=== PATIENT | female | born 1985 | race Caucasian/White ===

== ENCOUNTER → 2016-11-27 | Outpatient (CLI) | payer OTHER ==
[2015-08-15 13:30] VITALS: BP 122/83
[~2016-11-27] MED LIST: HYDR-971 PO; IOHEXOL 180 MG/ML 10 ML VIAL. INT UTERIN ONE; NAPR500T PO; NORE-81 PO; PNV1TABL12 PO
--- NOTE | 2016-11-27 09:38 | KCIC ---
PROCEDURE Hysterosalpingogram HISTORY Post Essure COMPARISON December 06, 2015 TECHNIQUE Patient has a negative test from 11/13/2016. Patient was informed of the risks to include pain, infection, bleeding, allergic reaction. All questions were answered. Patient signed a written consent form for a hysterosalpingogram. Patient was placed in a supine position on the fluoroscopy table. External skin site was cleansed with Betadine solution. Speculum was inserted. External cervical os was cleansed with Betadine solution. Five Malay HSG catheter was inserted and secured with balloon inflation. Fluoroscopic images were acquired during injection of 6 cc Omnipaque 180 contrast. Balloon was deflated and catheter removed. Speculum was removed. There were no immediate complications. FINDINGS There are again bilateral Essure devices present. The bilateral fallopian tubes are now occluded, no contrast opacification beyond the Essure devices. Uterine contour is within normal limits. Fluoroscopy time 27 seconds, 9 images IMPRESSION 1. Bilateral fallopian tubes are now occlued, bilateral Essure devices present. Electronically signed by: Miles Cowart MD (Nov 27, 2016 09:37:08)
== END | disposition home or self-care (01) ==
LOC: KCIC 07:49
PROVIDERS: ATTEND Nurse Practitioner Women's Health
DX: M47.896 Other spondylosis, lumbar region (principal); M43.16 Spondylolisthesis, lumbar region
CPT/HCPCS: 74400

== ENCOUNTER 2017-02-22 23:08 | Emergency (ER) | payer OTHER ==
[~2017-02-22] VITALS: Ht 152.4 cm; Wt 65.8 kg
[~2017-02-22 23:08] MED LIST changes: -IOHEXOL 180 MG/ML 10 ML VIAL. INT UTERIN ONE
[2017-02-22 23:45] LABS: BASO # 0.1 x10^3/uL (0.0-0.2); BASO % 0 % (0-3); EOS % 2 % (0-3); HEMATOCRIT 39.6 % (36.0-47.0); HEMOGLOBIN 13.2 g/dL (12.0-15.5); LYMPH # 2.1 x10^3/uL (1.0-4.8); LYMPH % 12 % (24-48); MEAN CORPUSCULAR HEMOGLOBIN 29 pg (25-35); MEAN CORPUSCULAR HGB CONC 33 g/dL (31-37); MEAN CORPUSCULAR VOLUME 87 fL (79-100); MONO % 5 % (0-9); NEUT % 81 % (31-73); PLATELET COUNT 326 x10^3/uL (140-400); RED BLOOD COUNT 4.54 x10^6/uL (3.50-5.40); RED CELL DISTRIBUTION WIDTH 13.1 % (11.5-14.5); WHITE BLOOD COUNT 17.3 x10^3/uL (4.0-11.0)
[2017-02-22 23:58] LABS: CALCIUM 8.8 mg/dL (8.5-10.1); CREATININE 0.8 mg/dL (0.6-1.0); GFR 83.1; POTASSIUM 3.5 mmol/L (3.5-5.1)
[2017-02-23 00:04] LABS: ALBUMIN 3.8 g/dL (3.4-5.0); ALBUMIN/GLOBULIN RATIO 1.1 (1.0-1.7); TOTAL BILIRUBIN 0.5 mg/dL (0.2-1.0); TOTAL PROTEIN 7.4 g/dL (6.4-8.2)
[2017-02-23 00:05] LABS: % EOS 1 % (0-5); PLT ESTIMATE ADEQUATE (ADEQUATE)
[2017-02-23] MEDS ORDERED: IBUP-1007 PO (01:22)
--- NOTE | 2017-02-23 01:22 | PHYS DOC ---
Past Medical History Past Medical History: No Pertinent History Past Surgical History: No Surgical History Alcohol Use: None Drug Use: None Adult General Chief Complaint Chief Complaint: CHEST PAIN HPI HPI Patient is a 31 year old female who presents to the ER today complaining of sharp pleuritic midsternal/xiphoid chest pain that started approximately 9 PM. Patient denies any other symptomatology at this time. Patient has any fevers shakes chills nausea vomiting diarrhea or shortness of breath. Patient denies any recent cough. Patient denies any lower extremity edema. Patient denies any history of PE or DVT in the past. Patient reports the pain increases with deep inspiration. Patient has no past medical history is. Patient has any hypertension diabetes liver longer kidney problems. Patient denies any prior abdominal surgeries. Patient does not smoke drink or do any drugs. Patient is not allergic to any medications. Patient denies the pain increases with exertion. Patient reports pain increases with cough or deep inspiration. Patient denies any change with position. Patient's physical exam was unremarkable except for reproducible tenderness to palpation over her mid xiphoid region. Patient does have first-degree franco consistent with a sunburn all over her body the bathing suit distribution. Patient's heart was regular rate and rhythm without any murmurs gallops or rubs. Patient's lungs were clear without any wheezing rales or rhonchi. Patient' s abdomen was soft nontender no rebound or guarding. There is normal active bowel sounds. Patient's extremities revealed no clubbing cyanosis or edema. There was no Homans sign. Patient's ER workup has been unremarkable. Patient's EKG revealed normal sinus bradycardia with at a heart rate of [address]-T wave abnormalities. There was no evidence of STEMI. There was no evidence of PE on the EKG. Since chest x-ray revealed normal heart size with no infiltrates or effusions as interpreted by Dr. Lay. Patient's labs are all within normal limits. Patient did have an elevated WBC count which is nonspecific without any source identified on exam or by history. Patient does not appear to have any infection. I do not have a clear correlation for this however have discussed this with the patient that she will need to follow-up with her primary care doctor to have a repeat white count performed. Patient was instructed to return to the ER she's developed any fevers or any other concerning symptoms that we can reevaluate her here in the ER for her elevated WBC count, however at this time I do not feel that the patient will require any further inpatient her emergency room evaluation for this discomfort/elevated WBC count. Since d-dimer was within normal limits. Patient's troponin was unremarkable. Assessment and plan: This is a 31-year-old female who presents here today with nonspecific chest pain that appears to be mechanical in nature. Patient be discharged home with ibuprofen and is to follow-up with her primary care physician as an outpatient. Review of Systems Review of Systems Constitutional: Denies fever or chills [] Eyes: Denies change in visual acuity, redness, or eye pain [] All other review systems are negative except as documented in the history of present illness portion. Allergies Allergies Allergies Coded Allergies Type Severity Reaction Last Updated Verified No Known Drug Allergies 08/15/15 No Physical Exam Physical Exam Constitutional: Well developed, well nourished, no acute distress, non-toxic appearance. [] HENT: Normocephalic, atraumatic, bilateral external ears normal, oropharynx moist, no oral exudates, nose normal. [] Eyes: PERRLA, EOMI, conjunctiva normal, no discharge. [] Neck: Normal range of motion, no tenderness, supple, no stridor. [] Cardiovascular:Heart rate regular rhythm, reproducible tenderness to palpation to her xiphoid. Lungs & Thorax: Bilateral breath sounds clear to auscultation [] Abdomen: Bowel sounds normal, soft, no tenderness, no masses, no pulsatile masses. [] Skin: Warm, dry, no erythema, no rash. [] Back: No tenderness, no CVA tenderness. [] Extremities: No tenderness, no cyanosis, no clubbing, ROM intact, no edema. [] Neurologic: Alert and oriented X 3, normal motor function, normal sensory function, no focal deficits noted. [] Psychologic: Affect normal, judgement normal, mood normal. [] Current Patient Data Vital Signs Vital Signs Date Time Temp Pulse Resp B/P (MAP) Pulse Ox O2 Delivery O2 Flow Rate FiO2 02/22/17 23:28 97.9 67 16 128/69 (88) 97 Room Air 97.9 Lab Values Laboratory Tests Test 02/22/17 23:17 02/22/17 23:34 POC Urine HCG, Qualitative Hcg negative (Negative) White Blood Count 17.3 x10^3/uL (4.0-11.0) H Red Blood Count 4.54 x10^6/uL (3.50-5.40) Hemoglobin 13.2 g/dL (12.0-15.5) Hematocrit 39.6 % (36.0-47.0) Mean Corpuscular Volume 87 fL (79-100) Mean Corpuscular Hemoglobin 29 pg (25-35) Mean Corpuscular Hemoglobin Concent 33 g/dL (31-37) Red Cell Distribution Width 13.1 % (11.5-14.5) Platelet Count 326 x10^3/uL (140-400) Neutrophils (%) (Auto) 81 % (31-73) H Lymphocytes (%) (Auto) 12 % (24-48) L Monocytes (%) (Auto) 5 % (0-9) Eosinophils (%) (Auto) 2 % (0-3) Basophils (%) (Auto) 0 % (0-3) Neutrophils # (Auto) 14.0 x10^3uL (1.8-7.7) H Lymphocytes # (Auto) 2.1 x10^3/uL (1.0-4.8) Monocytes # (Auto) 0.8 x10^3/uL (0.0-1.1) Eosinophils # (Auto) 0.3 x10^3/uL (0.0-0.7) Basophils # (Auto) 0.1 x10^3/uL (0.0-0.2) Segmented Neutrophils % 77 % (35-66) H Lymphocytes % 19 % (24-48) L Monocytes % 3 % (0-10) Eosinophils % 1 % (0-5) Platelet Estimate Adequate (ADEQUATE) D-Dimer (Cait) 0.34 ug/mlFEU (0.00-0.50) Sodium Level 139 mmol/L (136-145) Potassium Level 3.5 mmol/L (3.5-5.1) Chloride Level 102 mmol/L (98-107) Carbon Dioxide Level 28 mmol/L (21-32) Anion Gap 9 (6-14) Blood Urea Nitrogen 13 mg/dL (7-20) Creatinine 0.8 mg/dL (0.6-1.0) Estimated GFR (Cockcroft-Gault) 83.1 BUN/Creatinine Ratio 16 (6-20) Glucose Level 131 mg/dL (70-99) H Calcium Level 8.8 mg/dL (8.5-10.1) Total Bilirubin 0.5 mg/dL (0.2-1.0) Aspartate Amino Transferase (AST) 16 U/L (15-37) Alanine Aminotransferase (ALT) 22 U/L (14-59) Alkaline Phosphatase 113 U/L (46-116) Total Protein 7.4 g/dL (6.4-8.2) Albumin 3.8 g/dL (3.4-5.0) Albumin/Globulin Ratio 1.1 (1.0-1.7) Laboratory Tests 02/22/17 23:34 Laboratory Tests 02/22/17 23:34 EKG EKG [] Radiology/Procedures Radiology/Procedures [] Course & Med Decision Making Course & Med Decision Making Pertinent Labs and Imaging studies reviewed. (See chart for details) [] Dragon Disclaimer Dragon Disclaimer This electronic medical record was generated, in whole or in part, using a voice recognition dictation system. Departure Departure Impression: Primary Impression: Nonspecific chest pain Additional Impression: Leukocytosis Disposition: HOME, SELF-CARE Condition: IMPROVED Referrals: ARYAN KELLER MD (PCP) Patient Instructions: Chest Pain (Nonspecific), Leukocytosis Additional Instructions: Please follow up with your family doctor to further evaluate her chest pain. Your white blood cell count was also elevated in the emergency department. This is a very nonspecific finding. We did however recommend that he follow-up with your family doctor to have that repeated. Scripts Ibuprofen (IBUPROFEN) 600 Mg Tablet 600 MG PO PRN Q6HRS Y for PAIN, #20 TAB Prov: GALA MARINELLI MD 02/23/17 Problem Qualifiers Additional Impression: Leukocytosis Leukocytosis type: unspecified Qualified Codes: D72.829 - Elevated white blood cell count, unspecified GALA MARINELLI MD Feb 23, 2017 01:22
[2017-02-23 01:30] VITALS: BP 116/73
--- NOTE | 2017-02-23 07:35 | RAD ---
EXAM: Chest 2 views. HISTORY: Chest pain. COMPARISON: None. FINDINGS: Frontal and lateral views of the chest are obtained. The central pulmonary vasculature are mildly prominent. There is no pneumothorax or pleural effusion. The heart is not enlarged. IMPRESSION: 1. Correlate for volume overload or mild atypical pneumonic process.
--- NOTE | 2017-02-24 09:17 | EKG ---
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
== END 2017-02-23 01:53 | disposition home or self-care (01) ==
LOC: ER 23:08
DX: R07.89 Other chest pain (principal); D72.829 Elevated white blood cell count, unspecified; L55.0 Sunburn of first degree; R00.1 Bradycardia, unspecified
CPT/HCPCS: 36415; 71020; 80053; 81025; 85007; 85027; 85379; 93005; 99285-25

== ENCOUNTER 2017-02-26 02:50 | Emergency (ER) | payer OTHER ==
[~2017-02-26] VITALS: Ht 152.4 cm; Wt 65.8 kg
[~2017-02-26 02:50] MED LIST changes: +IBUP-1007 PO
[2017-02-26 03:44] LABS: BASO # 0.1 x10^3/uL (0.0-0.2); BASO % 0 % (0-3); EOS % 3 % (0-3); HEMATOCRIT 40.4 % (36.0-47.0); HEMOGLOBIN 13.5 g/dL (12.0-15.5); LYMPH # 2.7 x10^3/uL (1.0-4.8); LYMPH % 20 % (24-48); MEAN CORPUSCULAR HEMOGLOBIN 29 pg (25-35); MEAN CORPUSCULAR HGB CONC 33 g/dL (31-37); MEAN CORPUSCULAR VOLUME 88 fL (79-100); MONO % 7 % (0-9); NEUT % 70 % (31-73); PLATELET COUNT 337 x10^3/uL (140-400); RED BLOOD COUNT 4.62 x10^6/uL (3.50-5.40); RED CELL DISTRIBUTION WIDTH 13.5 % (11.5-14.5); WHITE BLOOD COUNT 13.5 x10^3/uL (4.0-11.0)
[2017-02-26] MEDS ORDERED: KETOROLAC 15 MG/ML VIAL. IV ONE (03:45)
[2017-02-26] MEDS ORDERED: ONDANSETRON PF 4 MG/2 ML VIAL. IV ONE (03:45)
[2017-02-26] MEDS ORDERED: HYDROmorphone 2 MG/ML VIAL IV ONE (03:45)
[2017-02-26 03:51] LABS: CALCIUM 9.2 mg/dL (8.5-10.1); CREATININE 0.8 mg/dL (0.6-1.0); GFR 83.1; POTASSIUM 3.6 mmol/L (3.5-5.1)
[2017-02-26 03:57] LABS: ALBUMIN 3.9 g/dL (3.4-5.0); TOTAL BILIRUBIN 0.4 mg/dL (0.2-1.0)
--- NOTE | 2017-02-26 04:18 | RAD ---
Examination: Ultrasound right upper quadrant HISTORY: History of epigastric pain, nausea COMPARISON: None available. Findings: The visualized pancreas, grossly appears unremarkable. Visualized IVC appears patent. The right lobe of the the liver measures 16.1 cm. 2 gallstones identified within the gallbladder. One of the gallstones is in the neck of the gallbladder and appears immobile. The gallbladder wall is mildly thickened measuring 3.8 mm. Examination is positive for ultrasonographic evidence of Mittal's sign. There is a small 1.2 cm cystic structure identified in the right kidney likely a cyst. The right kidney measures 10.0 cm in length. The common bile duct measures 4.2 mm in transverse dimension. IMPRESSION: 1. Two gallstones identified within the gallbladder. One of the gallstones appears to be within the neck of the gallbladder and is immobile. There is mild thickened appearance of the gallbladder wall with positive ultrasonographic evidence of Mittal's sign. Correlate for cholecystitis. 2. 1.2 cm right renal cyst. Electronically signed by: Ganesh Gomes MD (02/26/2017 4:14 AM)
[2017-02-26 04:35] VITALS: BP 103/63
[2017-02-26] MEDS ORDERED: HYDR-971 PO (05:04)
[2017-02-26] MEDS ORDERED: ONDA4TAB10 SL (05:04)
[2017-02-26] MEDS ORDERED: HYOS0.1265 SL (05:04)
--- NOTE | 2017-02-26 05:04 | PHYS DOC ---
Past Medical History Past Medical History: No Pertinent History Past Surgical History: No Surgical History Alcohol Use: None Drug Use: None Adult General Chief Complaint Chief Complaint: HEARTBURN/GI DISTRESS HPI HPI Patient is a 31 year old female presents here today complaining of midepigastric and right upper quadrant pain. Patient was seen by me here 2 days ago for similar have pain except today the pain is in her right upper quadrant she reports last MSR the pain was in the left upper quadrant. Patient denies any hypertension diabetes CHF COPD. Patient denies any surgeries in the past. Patient is not allergic to any medications. Patient does not smoke drink or do any drugs. Patient's last menstrual period was approximately one month ago. Patient has any fevers shakes chills. Patient has any vomiting or diarrhea. Patient denies any dysuria frequency urgency. Patient reports she is nauseous. Patient has any cough cold runny nose. Patient reports that she saw her PCP on Thursday as requested and no further workup had been ordered. Patient's physical exam today reveals a tender midepigastric to right upper quadrant region. Patient does not have a Mittal sign. Patient has no rebound or guarding. Patient does not have a psoas or obturator signs. Patient has normal active bowel sounds. Patient does not present with any signs or symptoms O be consistent with an acute surgical abdomen. Patient's workup in the ER was significant for normal labs. Patient ALT and AST which is slightly elevated. Patient had an ultrasound of her right upper quadrant which revealed 2 gallstones within the gallbladder with gallstones appears to be within the next the gallbladder is and mobile. There is mild thickened appearance of the gallbladder wall with positive ultrasonographic Mittal sign. Patient's ER hospital course was significant for the ultrasound that was consistent with stones in her gallbladder. Patient received IV pain medications and at 5 AM she is currently absolutely pain-free. Patient does not have a Mittal sign on exam. Patient currently has no pain to palpation. Assessment and plan this is a 31-year-old female who presents here today complaining of abdominal pain that most likely secondary to cholelithiasis. Patient is currently pain-free after 1 dose of pain medicines. Patient will be discharged home with a copy of her ultrasound report and instructions to follow- up with her primary care physician in order to get a referral to see a surgeon. Review of Systems Review of Systems Constitutional: Denies fever or chills [] Eyes: Denies change in visual acuity, redness, or eye pain [] HENT: Denies nasal congestion or sore throat [] All other review systems are negative except as documented in the history of present illness portion. Current Medications Current Medications Current Medications Medications (Trade) Dose Ordered Sig/Nathen Start Time Stop Time Status Last Admin Dose Admin Hydromorphone HCl (Dilaudid) 0.5 mg 1X ONCE 02/26/17 03:45 02/26/17 03:46 DC 02/26/17 03:42 0.5 MG Ketorolac Tromethamine (Toradol) 30 mg 1X ONCE 02/26/17 03:45 02/26/17 03:46 DC 02/26/17 03:43 30 MG Ondansetron HCl (Zofran) 4 mg 1X ONCE 02/26/17 03:45 02/26/17 03:46 DC 02/26/17 03:42 4 MG Allergies Allergies Allergies Coded Allergies Type Severity Reaction Last Updated Verified No Known Drug Allergies 08/15/15 No Physical Exam Physical Exam Constitutional: Well developed, well nourished, no acute distress, non-toxic appearance. [] HENT: Normocephalic, atraumatic, bilateral external ears normal, oropharynx moist, no oral exudates, nose normal. [] Eyes: PERRLA, EOMI, conjunctiva normal, no discharge. [] Neck: Normal range of motion, no tenderness, supple, no stridor. [] Cardiovascular:Heart rate regular rhythm, no murmur [] Lungs & Thorax: Bilateral breath sounds clear to auscultation [] Abdomen: Bowel sounds normal, soft, tenderness to palpation, no masses, no pulsatile masses. [] Skin: Warm, dry, no erythema, no rash. [] Back: No tenderness, no CVA tenderness. [] Extremities: No tenderness, no cyanosis, no clubbing, ROM intact, no edema. [] Neurologic: Alert and oriented X 3, normal motor function, normal sensory function, no focal deficits noted. [] Psychologic: Affect normal, judgement normal, mood normal. [] Current Patient Data Vital Signs Vital Signs Date Time Temp Pulse Resp B/P (MAP) Pulse Ox O2 Delivery O2 Flow Rate FiO2 02/26/17 04:35 74 18 103/63 (76) 95 Room Air 02/26/17 03:00 98.2 98.2 Lab Values Laboratory Tests Test 02/26/17 03:36 White Blood Count 13.5 x10^3/uL (4.0-11.0) H Red Blood Count 4.62 x10^6/uL (3.50-5.40) Hemoglobin 13.5 g/dL (12.0-15.5) Hematocrit 40.4 % (36.0-47.0) Mean Corpuscular Volume 88 fL (79-100) Mean Corpuscular Hemoglobin 29 pg (25-35) Mean Corpuscular Hemoglobin Concent 33 g/dL (31-37) Red Cell Distribution Width 13.5 % (11.5-14.5) Platelet Count 337 x10^3/uL (140-400) Neutrophils (%) (Auto) 70 % (31-73) Lymphocytes (%) (Auto) 20 % (24-48) L Monocytes (%) (Auto) 7 % (0-9) Eosinophils (%) (Auto) 3 % (0-3) Basophils (%) (Auto) 0 % (0-3) Neutrophils # (Auto) 9.4 x10^3uL (1.8-7.7) H Lymphocytes # (Auto) 2.7 x10^3/uL (1.0-4.8) Monocytes # (Auto) 0.9 x10^3/uL (0.0-1.1) Eosinophils # (Auto) 0.4 x10^3/uL (0.0-0.7) Basophils # (Auto) 0.1 x10^3/uL (0.0-0.2) Sodium Level 139 mmol/L (136-145) Potassium Level 3.6 mmol/L (3.5-5.1) Chloride Level 104 mmol/L (98-107) Carbon Dioxide Level 29 mmol/L (21-32) Anion Gap 6 (6-14) Blood Urea Nitrogen 17 mg/dL (7-20) Creatinine 0.8 mg/dL (0.6-1.0) Estimated GFR (Cockcroft-Gault) 83.1 BUN/Creatinine Ratio 21 (6-20) H Glucose Level 112 mg/dL (70-99) H Calcium Level 9.2 mg/dL (8.5-10.1) Total Bilirubin 0.4 mg/dL (0.2-1.0) Aspartate Amino Transferase (AST) 41 U/L (15-37) H Alanine Aminotransferase (ALT) 71 U/L (14-59) H Alkaline Phosphatase 115 U/L (46-116) Troponin I Quantitative < 0.017 ng/mL (0.000-0.055) Total Protein 8.0 g/dL (6.4-8.2) Albumin 3.9 g/dL (3.4-5.0) Albumin/Globulin Ratio 1.0 (1.0-1.7) Lipase 133 U/L (73-393) Laboratory Tests 02/26/17 03:36 Laboratory Tests 02/26/17 03:36 EKG EKG [] Radiology/Procedures Radiology/Procedures [] Course & Med Decision Making Course & Med Decision Making Pertinent Labs and Imaging studies reviewed. (See chart for details) [] Dragon Disclaimer Dragon Disclaimer This electronic medical record was generated, in whole or in part, using a voice recognition dictation system. Departure Departure Impression: Primary Impression: Cholelithiasis Additional Impression: Biliary colic Disposition: 01 HOME, SELF-CARE Condition: IMPROVED Referrals: ARYAN KELLER MD (PCP) Patient Instructions: Biliary Colic Scripts Ondansetron (ZOFRAN ODT) 4 Mg Tab.rapdis 1 TAB SL Q6HRS Y for NAUSEA, #12 TAB Prov: GALA MARINELLI MD 02/26/17 Hydrocodone/Apap 5-325 (NORCO 5-325 TABLET) 1 Each Tablet 1 TAB PO QID Y for PAIN, #10 TAB Prov: GALA MARINELLI MD 02/26/17 Hyoscyamine Sulfate (LEVSIN-SL) 0.125 Mg Tab.subl 0.125 MG SL Q6-8HRS Y for abdominal cramps, #10 Prov: GALA MARINELLI MD 02/26/17 Problem Qualifiers GALA MARINELLI MD Feb 26, 2017 05:04
--- NOTE | 2017-02-26 08:44 | EKG ---
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
== END 2017-02-26 05:21 | disposition home or self-care (01) ==
LOC: ER 02:50
DX: K80.70 Calculus of gallbladder and bile duct without cholecystitis without obstruction (principal)
CPT/HCPCS: 36415; 76705; 80053; 83690; 84484; 85027; 93005; 96374; 96375; 99285; J1170; J1885; J2405

== ENCOUNTER 2017-03-05 06:34 | Day surgery (SDC) | payer OTHER ==
[~2017-03-05] VITALS: Ht 153.7 cm; Wt 65.8 kg
[~2017-03-05 06:34] MED LIST changes: +HYOS0.1265 SL; +ONDA4TAB10 SL
[2017-03-05] MEDS ORDERED: IV RINGERS,LACTATED 1000ML 1,000 ML IV SCH (07:00)
[2017-03-05] MEDS ORDERED: PROCHLORPERAZINE 10 MG/2 ML VIAL. IV PRN (07:00)
[2017-03-05] MEDS ORDERED: ONDANSETRON PF 4 MG/2 ML VIAL. IV PRN (07:00)
[2017-03-05] MEDS ORDERED: HYDROmorphone 2 MG/ML VIAL IV PRN (07:00)
[2017-03-05] MEDS ORDERED: fentaNYL PF VIAL 100 MCG/2 ML VIAL IV PRN (07:00)
[2017-03-05] MEDS ORDERED: LIDOCAINE 1% 1 ML SYRINGE. ID PRN (07:00)
[2017-03-05] MEDS ORDERED: MORPHINE SULFATE 2 MG/ML DISP.SYRIN. IV PRN (07:00)
[2017-03-05] MEDS ORDERED: SURGICEL HEMOSTAT 4X8 EACH. ONE (07:03)
[2017-03-05] MEDS ORDERED: BUPIVAC MPF-EPI 0.5%-1:200000 30 ML VIAL. ONE (07:03)
[2017-03-05] MEDS ORDERED: IOHEXOL 300 MG/ML 50 ML VIAL. ONE (07:03)
[2017-03-05] MEDS ORDERED: GLUCAGON,HUMAN RECOMBINANT 1 MG/ML VIAL. ONE (07:03)
[2017-03-05 07:26] LABS: NEG OBC UR NEG; POS OBC UR POS
[2017-03-05] MEDS ORDERED: MIDAZOLAM HCL/PF 2 MG/2 ML VIAL. ONE (07:30)
[2017-03-05] MEDS ORDERED: ROCURONIUM 50 MG/5 ML VIAL. ONE ×2 (07:30→08:54)
[2017-03-05] MEDS ORDERED: fentaNYL PF VIAL 250 MCG/5 ML VIAL ONE (07:30)
[2017-03-05] MEDS ORDERED: DEXAMETHASONE SOD PHOS 20 MG/5 ML VIAL. ONE (07:30)
[2017-03-05] MEDS ORDERED: ONDANSETRON PF 4 MG/2 ML VIAL. ONE (07:30)
[2017-03-05] MEDS ORDERED: PROPOFOL 20 ML IV ONE (07:30)
[2017-03-05] MEDS ORDERED: LIDOCAINE 2% PF Vial for OR 5 ML VIAL. ONE (07:30)
--- NOTE | 2017-03-05 09:04 | RAD ---
Indication operative cholangiogram. For members of the Department of surgery fluoroscopy was provided. 3 spot fluoroscopic images were obtained. No evidence of choledocholithiasis is seen. Contrast flows unremarkably into the duodenum. Fluoroscopy time associated with the imaging has been reported as 2 seconds. IMPRESSION: Normal operative cholangiogram
[2017-03-05] MEDS ORDERED: GLYCOPYRROLATE 1 MG/5 ML VIAL. ONE (09:06)
[2017-03-05] MEDS ORDERED: NEOSTIGMINE METHYLSULFATE 5 MG/5 ML SYRINGE. ONE (09:06)
[2017-03-05] MEDS: fentaNYL PF VIAL 100 MCG/2 ML VIAL IV PRN ×3 (09:31→10:18)
--- NOTE | 2017-03-05 09:45 | PDOC ---
BRIEF OPERATIVE NOTE Date: Mar 05, 2017 Pre-Op Diagnosis symptomatic cholelithiasis Post-Op Diagnosis same Procedure Performed l/s malathi with grams Surgeon Shayne Pack Train Driver Jana VIVEROS Anesthesia Type: General Blood Loss 10cc IV Fluid 1300 Specimens Obtained GB Findings normal grams, small right inguinal hernia Complications none Additional Remarks Wk # [id number] DHARMESH CANTU MD Mar 05, 2017 09:45
--- NOTE | 2017-03-05 09:47 | DISCH ---
DISCHARGE INSTRUCTIONS Condition on Discharge Condition on Discharge: Stable Activity After Discharge Activity Instructions for Disc: Activity as tolerated, Avoid exertion Lifting Instructions after Dis: No heavy lifting Driving Instructions after Dis: Do not drive (3-4 days) Diet after Discharge Diet after Discharge: Regular Wound Incision Care Wound/Incision Care: Ice to area for comfort Other wound/incision instructi: january shower Thursday Follow-Up Follow up with: Shayne 03/13 DHARMESH CANTU MD Mar 05, 2017 09:47
[2017-03-05] MEDS ORDERED: oxyCODONE/APAP 5/325 1 TAB TABLET PO ONE (10:00)
[2017-03-05 10:47] VITALS: BP 116/72
--- NOTE | 2017-03-05 10:48 | OP ---
DATE OF SURGERY: 03/05/2017 PREOPERATIVE DIAGNOSIS: Symptomatic cholelithiasis. POSTOPERATIVE DIAGNOSIS: Symptomatic cholelithiasis. PROCEDURE: Laparoscopic cholecystectomy with cholangiogram. SURGEON: Dharmesh Cantu M.D. ANESTHESIA: General endotracheal. ESTIMATED BLOOD LOSS: 10 mL. INTRAVENOUS FLUIDS: 1300. INDICATIONS: The patient is a 31-year-old with postprandial epigastric and right upper quadrant abdominal pain. Ultrasound shows stones. She is brought for cholecystectomy. OPERATIVE FINDINGS: The liver was smooth and sharp. The gallbladder was supple, contained stones and was wrapped with omentum along the inferior surface. A small right inguinal hernia was present. Remainder of the inspection of the abdomen failed to reveal obvious abnormalities. DESCRIPTION OF PROCEDURE: The patient brought to the operating suite, given a general endotracheal anesthetic and the abdomen prepped and draped in usual sterile fashion. An infraumbilical incision was infiltrated with local anesthetic, sharply incised and a 5 mm Visiport used to gain access into the abdominal cavity. Pneumoperitoneum was established. Camera inserted and inspection carried out with results as noted above. With the table in reverse Trendelenburg rolled to left, the epigastric and midclavicular ports were placed under direct vision. The lateral port site was used for an "alligator" grasper and the gallbladder was retracted superolaterally. The omental adhesions were carefully taken down with blunt and cautery dissection avoiding injury to the adjacent bowel. The cystic duct and cystic artery were exposed. The duct was clipped on the gallbladder side. Cholangiograms were made. These were normal. In light of this, the catheter was removed. The cystic duct was clipped x 3 and divided taking care to avoid injury or compromise of the common duct. An anterior and posterior branch of the cystic artery were clipped and divided and gallbladder freed from the bed with cautery dissection and placed in an EndoCatch bag. Good hemostasis was present. Table returned to level. Gallbladder delivered through the epigastric incision. Epigastric incision closed with interrupted 0 Vicryl suture. Intra-abdominal pressure decreased to 6 cm of water. No bleeding from the epigastric closure or from the midclavicular port site after its removal or from the previous alligator grasper site. Abdomen decompressed, camera slowly removed, no bleeding seen. Skin incisions closed with subcuticular 4-0 Monocryl. Steri-Strips and sterile dressings applied. The patient awakened from her anesthetic and taken to the recovery room in satisfactory condition. DHARMESH CANTU MD DR: FAISAL/pb JOB#: [id number] / [id number]
== END 2017-03-05 12:17 | disposition home or self-care (01) ==
LOC: SURG 06:34
PROVIDERS: ATTEND Surgery
DX: K80.20 Calculus of gallbladder without cholecystitis without obstruction (principal); K66.0 Peritoneal adhesions (postprocedural) (postinfection); K40.90 Unilateral inguinal hernia, without obstruction or gangrene, not specified as recurrent; E66.9 Obesity, unspecified; K21.9 Gastro-esophageal reflux disease without esophagitis; Z68.32 Body mass index [BMI] 32.0-32.9, adult
CPT/HCPCS: 47563; 74300; 81025; J0690; J0780; J1100; J2250; J2405; J2704; J2710; J3010; J3490; J7030; J7120; Q9967; J1610

== ENCOUNTER 2017-03-08 14:49 | Emergency (ER) | payer OTHER ==
[~2017-03-08] VITALS: Ht 152.4 cm; Wt 65.8 kg
[2017-03-08] MEDS ORDERED: NITROGLYCERIN SUBLINGUAL 0.4 MG BOTTLE OF 25. SL PRN (15:15)
[2017-03-08] MEDS ORDERED: HEPARIN for IV BOLUS 10,000 UNIT/10 ML VIAL. IV ONE (15:15)
[2017-03-08] MEDS ORDERED: fentaNYL PF VIAL 100 MCG/2 ML VIAL IV PRN ×2 (15:15→15:30)
[2017-03-08] MEDS ORDERED: HEPARIN 25,000UTS/500ML PREMIX 500 ML IV ONE (15:15)
[2017-03-08] MEDS ORDERED: ONDANSETRON PF 4 MG/2 ML VIAL. IV ONE (15:30)
[2017-03-08 16:00] LABS: BILIRUBIN,URINE NEGATIVE (NEG); GLUCOSE,URINE NEGATIVE (NEG); NITRITE,URINE NEGATIVE (NEG); PROTEIN,URINE NEGATIVE (NEG-TRACE); UROBILINOGEN,URINE 0.2 mg/dL (0.2 mg/dL)
--- NOTE | 2017-03-08 16:07 | ED.ADGEN ---
Past Medical History Past Medical History: No Pertinent History Past Surgical History: Cholecystectomy Alcohol Use: None Drug Use: None Adult General Chief Complaint Chief Complaint: POST-OP PROBLEM HPI HPI Patient is a 31 year old woman, status post laparoscopic cholecystectomy performed 4 days prior to arrival. Patient states that the surgery was uncomplicated, and that she had been recovering, states that today was the first day that she ate any solid foods, had been sticking mostly to liquid diet over the past 3 days. She states that she ate tortilla with chicken, and approximately 2 hours later began feeling ill, states nausea developed, cramping pain that was very strong located in the middle of her abdomen. She states she felt as though she may need to have a bowel movement. She she had a bowel movement, that was small well-formed, and continue to feel ill. States she felt ill for the past several hours, states that she felt as though the pain was so strong that "I might pass out". She states that she has been taking stool softeners as directed, and also oxycodone, Celexa's of oxycodone was about 4 hours ago. She denies any vomiting, any diarrhea, any weakness, numbness , tingling, chest pain, shortness breath, fevers, urinary complaints. She is this time that she is feeling a little better. She has not spoken to her surgeon , Dr. Bella. Review of Systems Review of Systems Constitutional: Denies fever or chills. [] Eyes: Denies change in visual acuity. [] HENT: Denies nasal congestion or sore throat. [] Respiratory: Denies cough or shortness of breath. [] Cardiovascular: Denies chest pain or edema. [] GI: Abdominal pain, "waves of strong pain", from the middle of the abdomen upwards, associated with nausea. : Denies dysuria. [] Musculoskeletal: Denies back pain or joint pain. [] Integument: Denies rash. [] Neurologic: Denies headache, focal weakness or sensory changes. [] Endocrine: Denies polyuria or polydipsia. [] Lymphatic: Denies swollen glands. [] Psychiatric: Denies depression or anxiety. [] Current Medications Current Medications Current Medications Medications (Trade) Dose Ordered Sig/Nathen Start Time Stop Time Status Last Admin Dose Admin Fentanyl Citrate (Fentanyl 2ml Vial) 25 mcg PRN Q15MIN PRN 03/08/17 15:30 03/09/17 15:29 03/08/17 15:47 25 MCG Heparin Sodium (Porcine) (Heparin Sodium) 3,950 unit 1X ONCE 03/08/17 15:15 03/08/17 15:16 UNV Heparin Sodium/ Dextrose 500 ml @ 0 mls/hr 1X ONCE 03/08/17 15:15 03/08/17 15:16 UNV Nitroglycerin (Nitrostat) 0.4 mg PRN Q5MIN PRN 03/08/17 15:15 03/09/17 15:14 Cancel Ondansetron HCl (Zofran) 4 mg 1X ONCE 03/08/17 15:30 03/08/17 15:31 DC 03/08/17 15:44 4 MG Allergies Allergies Allergies Coded Allergies Type Severity Reaction Last Updated Verified No Known Drug Allergies 03/05/17 No Physical Exam Physical Exam Constitutional: Well developed, well nourished, no acute distress, non-toxic appearance. [] HENT: Normocephalic, atraumatic, bilateral external ears normal, oropharynx moist, no oral exudates, nose normal. [] Eyes: PERRLA, EOMI, conjunctiva normal, no discharge. [] Neck: Normal range of motion, no tenderness, supple, no stridor. [] Cardiovascular:Heart rate regular rhythm, no murmur , S1, S2, no rubs or gallops. [] Lungs & Thorax: Bilateral breath sounds clear to auscultation, no wheezing, rhonchi, rales. No chest crepitus or tenderness. [] Abdomen: Bowel sounds present in all 4 quadrants, soft, patient with Steri- Strip someplace overlapped Surgical incisions, areas are clean dry and intact with no evidence of surrounding inflammation or induration, patient with diffuse minimal tenderness, no rebound, no rigidity, no guarding, no masses, no pulsatile masses. [] Skin: Warm, dry, no erythema, no rash. [] Back: No tenderness, no CVA tenderness. [] Extremities: No tenderness, no cyanosis, no clubbing, ROM intact, no edema. [] Neurologic: Alert and oriented X 3, normal motor function, normal sensory function, no focal deficits noted. [] Psychologic: Affect normal, judgement normal, mood normal. [] Current Patient Data Vital Signs Vital Signs Date Time Temp Pulse Resp B/P (MAP) Pulse Ox O2 Delivery O2 Flow Rate FiO2 03/08/17 15:47 18 03/08/17 14:49 98.1 60 126/64 (84) 98 Room Air 98.1 Lab Values Laboratory Tests Test 03/08/17 14:58 03/08/17 15:45 03/08/17 16:05 POC Urine HCG, Qualitative Hcg negative (Negative) Urine Collection Type Unknown Urine Color Yellow Urine Clarity Clear Urine pH 6.0 Urine Specific [place] 1.015 Urine Protein Negative mg/dL (NEG-TRACE) Urine Glucose (UA) Negative mg/dL (NEG) Urine Ketones (Stick) Negative mg/dL (NEG) Urine Blood Negative (NEG) Urine Nitrite Negative (NEG) Urine Bilirubin Negative (NEG) Urine Urobilinogen Dipstick 0.2 mg/dL (0.2 mg/dL) Urine Leukocyte Esterase Negative (NEG) Urine RBC 0 /HPF (0-2) Urine WBC 1-4 /HPF (0-4) Urine Squamous Epithelial Cells Few /LPF Urine Bacteria Few /HPF (0-FEW) Urine Mucus Mod /LPF White Blood Count 17.3 x10^3/uL (4.0-11.0) H Red Blood Count 4.71 x10^6/uL (3.50-5.40) Hemoglobin 13.6 g/dL (12.0-15.5) Hematocrit 41.0 % (36.0-47.0) Mean Corpuscular Volume 87 fL (79-100) Mean Corpuscular Hemoglobin 29 pg (25-35) Mean Corpuscular Hemoglobin Concent 33 g/dL (31-37) Red Cell Distribution Width 13.1 % (11.5-14.5) Platelet Count 377 x10^3/uL (140-400) Neutrophils (%) (Auto) 77 % (31-73) H Lymphocytes (%) (Auto) 13 % (24-48) L Monocytes (%) (Auto) 8 % (0-9) Eosinophils (%) (Auto) 2 % (0-3) Basophils (%) (Auto) 0 % (0-3) Neutrophils # (Auto) 13.3 x10^3uL (1.8-7.7) H Lymphocytes # (Auto) 2.2 x10^3/uL (1.0-4.8) Monocytes # (Auto) 1.4 x10^3/uL (0.0-1.1) H Eosinophils # (Auto) 0.3 x10^3/uL (0.0-0.7) Basophils # (Auto) 0.1 x10^3/uL (0.0-0.2) Sodium Level 138 mmol/L (136-145) Potassium Level 3.5 mmol/L (3.5-5.1) Chloride Level 101 mmol/L (98-107) Carbon Dioxide Level 30 mmol/L (21-32) Anion Gap 7 (6-14) Blood Urea Nitrogen 10 mg/dL (7-20) Creatinine 0.7 mg/dL (0.6-1.0) Estimated GFR (Cockcroft-Gault) 97.0 BUN/Creatinine Ratio 14 (6-20) Glucose Level 89 mg/dL (70-99) Calcium Level 9.3 mg/dL (8.5-10.1) Total Bilirubin 0.5 mg/dL (0.2-1.0) Aspartate Amino Transferase (AST) 35 U/L (15-37) Alanine Aminotransferase (ALT) 77 U/L (14-59) H Alkaline Phosphatase 113 U/L (46-116) Total Protein 7.5 g/dL (6.4-8.2) Albumin 3.7 g/dL (3.4-5.0) Albumin/Globulin Ratio 1.0 (1.0-1.7) Lipase 174 U/L (73-393) Serum Test, Qualitative Negative (NEG) Laboratory Tests 03/08/17 16:05 Laboratory Tests 03/08/17 16:05 EKG EKG [] Not indicated. Radiology/Procedures Radiology/Procedures Abdominal series: 3 view: Normal cardiopulmonary silhouette, no free air, no infiltrates or effusions, mild atelectasis noted bilaterally, patient is 4 days postop, no evidence of obstruction, patient with constipation, possible mild ileus, consistent with postoperative state. As interpreted by me. Course & Med Decision Making Course & Med Decision Making Pertinent Labs and Imaging studies reviewed. (See chart for details) Patient without emesis, pain is improved in the emergency department. Acute abdominal series revealed mild atelectasis in the lungs bilaterally, with evidence of constipation and potential mild ileus. Consistent with postoperative state, no struck to process, no other concerning signs identified. Laboratory studies revealed as a ptosis of 17.3, patient's previously was 7.3, and 13, I believe this is again consistent with postoperative state, and there is no indication of an acute infectious process. Patient taking by mouth fluids in the ED. I discussed use of Colace, before times daily, all and use of senna, along with Zofran as needed, importance of staying well-hydrated, patient is also given instructions on clear liquid diet, and importance of advancing diet slowly and carefully to prevent discomfort. We did also discuss at length concerning symptoms that prompt return to the emergency department for additional evaluation. Patient has appointed to follow- up with Dr. Bella on Thursday. Will continue medications as directed, along with dietary instructions, and return to the emergency department if any new or concerning symptoms as discussed develop. Discharged home in stable condition with plan as above. Dragon Disclaimer Dragon Disclaimer This electronic medical record was generated, in whole or in part, using a voice recognition dictation system. Departure Impression: Primary Impression: Constipation Additional Impression: Abdominal pain Disposition: HOME, SELF-CARE Condition: IMPROVED Scripts Ondansetron Hcl (ZOFRAN) 4 Mg Tablet 1 TAB PO Q8HRS Y for NAUSEA, #12 TAB Prov: LOI LAZARO DO 03/08/17 Sennosides (SENOKOT) 8.6 Mg Tablet 1 TAB PO BID, #20 TAB Take one pill a by mouth up to twice daily as needed for constipation. Stay well-hydrated. Prov: LOI LAZARO DO 03/08/17 Docusate Sodium (COLACE) 100 Mg Capsule 100 MG PO QID Y for CONSTIPATION, #40 CAP Take 4 tablets by mouth once daily to promote bowel motility while symptoms of constipation persist. Stay well-hydrated. Prov: LOI LAZARO DO 03/08/17 Problem Qualifiers LOI LAZARO DO Mar 08, 2017 16:07
[2017-03-08 16:09] LABS: BASO # 0.1 x10^3/uL (0.0-0.2); BASO % 0 % (0-3); EOS % 2 % (0-3); HEMOGLOBIN 13.6 g/dL (12.0-15.5); LYMPH # 2.2 x10^3/uL (1.0-4.8); LYMPH % 13 % (24-48); MEAN CORPUSCULAR HEMOGLOBIN 29 pg (25-35); MEAN CORPUSCULAR HGB CONC 33 g/dL (31-37); MEAN CORPUSCULAR VOLUME 87 fL (79-100); MONO % 8 % (0-9); NEUT % 77 % (31-73); PLATELET COUNT 377 x10^3/uL (140-400); RED BLOOD COUNT 4.71 x10^6/uL (3.50-5.40); RED CELL DISTRIBUTION WIDTH 13.1 % (11.5-14.5); WHITE BLOOD COUNT 17.3 x10^3/uL (4.0-11.0)
[2017-03-08 16:13] LABS: BACTERIA,URINE FEW /HPF (0-FEW); RBC,URINE 0 /HPF (0-2); SQUAMOUS EPITHELIAL CELL,UR FEW /LPF
[2017-03-08 16:15] VITALS: BP 114/81
[2017-03-08 16:20] LABS: CALCIUM 9.3 mg/dL (8.5-10.1); CREATININE 0.7 mg/dL (0.6-1.0); POTASSIUM 3.5 mmol/L (3.5-5.1)
[2017-03-08 16:26] LABS: ALBUMIN 3.7 g/dL (3.4-5.0); TOTAL BILIRUBIN 0.5 mg/dL (0.2-1.0); TOTAL PROTEIN 7.5 g/dL (6.4-8.2)
[2017-03-08 16:27] LABS: NEG OBC SER NEG; POS OBC SER POS
[2017-03-08] MEDS ORDERED: ONDA4TAB7 PO (17:11)
[2017-03-08] MEDS ORDERED: DOCU-109 PO (17:11)
[2017-03-08] MEDS ORDERED: SENN8.6T99 PO (17:11)
--- NOTE | 2017-03-08 17:21 | RAD ---
ACUTE ABDOMEN SERIES History: Abdominal pain s/p lap malathi 4 days ago Comparison: None. Findings: Frontal chest and supine and upright views of the abdomen. Cardiomediastinal silhouette is normal. There is no pleural effusion or pneumothorax. There is right infrahilar discoid atelectasis. Minimal linear atelectasis left midlung. No pneumoperitoneum is identified. There are cholecystectomy clips. There are fallopian tube occlusion devices. There are no air-fluid levels on the upright image. No organomegaly is appreciated. Scattered stool in the colon. There are a few air-filled small bowel loops. There is no evidence of obstruction. Normal-appearing appendix appears to be seen in the right lower abdomen. IMPRESSION: 1. Mild discoid atelectasis right infrahilar and left midlung. 2. Nonobstructive bowel gas pattern. There may be mild ileus.
== END 2017-03-08 17:30 | disposition home or self-care (01) ==
LOC: ER 14:49
DX: K59.00 Constipation, unspecified (principal); Z90.49 Acquired absence of other specified parts of digestive tract
CPT/HCPCS: 36415; 74022; 80053; 81001; 81025; 83690; 84703; 85027; 88304; 96374; 96375; 99285; J2405; J3010

== ENCOUNTER 2018-09-09 13:47 | Emergency (ER) | payer OTHER ==
[~2018-09-09] VITALS: Ht 149.9 cm; Wt 72.6 kg
[~2018-09-09 13:47] MED LIST changes: +DOCU-109 PO; +HYDR-3164 PO; -HYDR-971 PO; +NAPR-683 PO; -NAPR500T PO; +ONDA4TAB7 PO; +SENN8.6T99 PO
[2018-09-09] MEDS ORDERED: IV NORMAL SALINE 1000ML BAG 1,000 ML IV ONE (15:45)
[2018-09-09] MEDS ORDERED: ONDANSETRON PF 4 MG/2 ML VIAL. IV ONE (15:45)
[2018-09-09] MEDS ORDERED: fentaNYL PF VIAL 100 MCG/2 ML VIAL IV ONE (15:45)
[2018-09-09 15:53] LABS: BILIRUBIN,URINE NEGATIVE (NEG); CLARITY,URINE CLEAR; COLOR,URINE YELLOW; NITRITE,URINE NEGATIVE (NEG); PROTEIN,URINE NEGATIVE (NEG-TRACE)
[2018-09-09 16:07] LABS: BACTERIA,URINE FEW /HPF (0-FEW); RBC,URINE 0 /HPF (0-2); WBC,URINE 0 /HPF (0-4)
[2018-09-09 16:08] LABS: SQUAMOUS EPITHELIAL CELL,UR MOD /LPF
--- NOTE | 2018-09-09 16:09 | PHYS DOC ---
Past Medical History Past Medical History: No Pertinent History Past Surgical History: Cholecystectomy Alcohol Use: None Drug Use: None Adult General Chief Complaint Chief Complaint: FLANK PAIN HPI HPI 33-year-old female presents to ER via POV for complaints of abdominal pain for the past 3-4 months. Patient reports the pain has been gradually worsening over the past couple months and today she had radiation of pain into her left side which she hasn't had before. Patient states she has intermittent nausea when pain increases denies any vomiting or diarrhea episodes. Patient reports her stools have been more mucousy denying any bloody stools. Patient states she feels bloated in her abdomen. Patient denies any fever or chills, urinary symptoms, or vaginal symptoms. LMP 2 weeks ago denies concerns for STDs or infection. Patient denies any recent travel. Patient denies others close to her with similar illness. Review of Systems Review of Systems Constitutional: Denies fever or chills. Denies fatigue Eyes: Denies change in visual acuity, redness, or eye pain [] HENT: Denies nasal congestion or sore throat [] Respiratory: Denies cough or shortness of breath [] Cardiovascular: Denies chest pain or palpitations GI: Denies vomiting, bloody stools or diarrhea. Reports mid epigastric pain into lower left and side abdomen. Reports intermittent nausea when pain increases : Denies dysuria or hematuria. Denies abnormal vaginal bleeding or vaginal symptoms Musculoskeletal: Denies back pain or joint pain [] Integument: Denies rash or skin lesions [] Neurologic: Denies headache, focal weakness or sensory changes [] All other systems were reviewed and found to be within normal limits, except as documented in this note. Current Medications Current Medications Current Medications Medications (Trade) Dose Ordered Sig/[facility] Start Time Stop Time Status Last Admin Dose Admin Fentanyl Citrate (Fentanyl 2ml Vial) 25 mcg 1X ONCE 09/09/18 15:45 09/09/18 15:49 DC 09/09/18 17:11 25 MCG Info (CONTRAST GIVEN -- Rx MONITORING) 1 each PRN DAILY PRN 09/09/18 17:00 09/11/18 16:59 Iohexol (Omnipaque 300 Mg/ml) 75 ml 1X ONCE 09/09/18 17:00 09/09/18 17:01 DC 09/09/18 16:59 75 ML Ondansetron HCl (Zofran) 4 mg 1X ONCE 09/09/18 15:45 09/09/18 15:49 DC 09/09/18 17:11 4 MG Sodium Chloride 1,000 ml @ 1,000 mls/hr 1X ONCE 09/09/18 15:45 09/09/18 16:44 DC 09/09/18 17:10 1,000 MLS/HR Allergies Allergies Allergies Coded Allergies Type Severity Reaction Last Updated Verified No Known Drug Allergies 03/05/17 No Physical Exam Physical Exam Constitutional: Well developed, well nourished, no acute distress, non-toxic appearance. [] HENT: Normocephalic, atraumatic, oropharynx moist, nose normal. [] Eyes: Pupils equal, conjunctiva normal, no discharge. [] Neck: Normal range of motion, no tenderness, supple, no stridor. [] Cardiovascular: Heart rate regular rhythm, no murmur [] Lungs & Thorax: Bilateral breath sounds clear to auscultation. Respirations equal and nonlabored Abdomen: Bowel sounds normal, soft-no distention or rigidity, diffuse tenderness from the mid epigastric into left side abdomen-no focal area, no masses, no pulsatile masses. [] Skin: Warm, dry, no erythema, no rash. [] Back: No tenderness, no CVA tenderness. [] Extremities: No tenderness, no cyanosis, no clubbing, ROM intact, no edema. [] Neurologic: Alert and oriented X 3, normal motor function, normal sensory function, no focal deficits noted. [] Psychologic: Affect normal, judgement normal, mood normal. [] Current Patient Data Vital Signs Vital Signs Date Time Temp Pulse Resp B/P (MAP) Pulse Ox O2 Delivery O2 Flow Rate FiO2 09/09/18 17:11 16 100 Room Air 09/09/18 15:50 98.2 68 112/58 (76) 98.2 Lab Values Laboratory Tests Test 09/09/18 15:44 09/09/18 15:46 09/09/18 16:18 Urine Collection Type Unknown Urine Color Yellow Urine Clarity Clear Urine pH 6.0 Urine Specific [place] 1.025 Urine Protein Negative mg/dL (NEG-TRACE) Urine Glucose (UA) Negative mg/dL (NEG) Urine Ketones (Stick) Negative mg/dL (NEG) Urine Blood Negative (NEG) Urine Nitrite Negative (NEG) Urine Bilirubin Negative (NEG) Urine Urobilinogen Dipstick 1.0 mg/dL (0.2 mg/dL) Urine Leukocyte Esterase Negative (NEG) Urine RBC 0 /HPF (0-2) Urine WBC 0 /HPF (0-4) Urine Squamous Epithelial Cells Mod /LPF Urine Bacteria Few /HPF (0-FEW) Urine Mucus Slight /LPF POC Urine HCG, Qualitative Hcg negative (Negative) White Blood Count 9.7 x10^3/uL (4.0-11.0) Red Blood Count 4.48 x10^6/uL (3.50-5.40) Hemoglobin 13.8 g/dL (12.0-15.5) Hematocrit 39.3 % (36.0-47.0) Mean Corpuscular Volume 88 fL (79-100) Mean Corpuscular Hemoglobin 31 pg (25-35) Mean Corpuscular Hemoglobin Concent 35 g/dL (31-37) Red Cell Distribution Width 13.3 % (11.5-14.5) Platelet Count 364 x10^3/uL (140-400) Neutrophils (%) (Auto) 61 % (31-73) Lymphocytes (%) (Auto) 27 % (24-48) Monocytes (%) (Auto) 7 % (0-9) Eosinophils (%) (Auto) 4 % (0-3) H Basophils (%) (Auto) 1 % (0-3) Neutrophils # (Auto) 6.0 x10^3uL (1.8-7.7) Lymphocytes # (Auto) 2.6 x10^3/uL (1.0-4.8) Monocytes # (Auto) 0.7 x10^3/uL (0.0-1.1) Eosinophils # (Auto) 0.4 x10^3/uL (0.0-0.7) Basophils # (Auto) 0.1 x10^3/uL (0.0-0.2) Sodium Level 143 mmol/L (136-145) Potassium Level 4.3 mmol/L (3.5-5.1) Chloride Level 107 mmol/L (98-107) Carbon Dioxide Level 28 mmol/L (21-32) Anion Gap 8 (6-14) Blood Urea Nitrogen 17 mg/dL (7-20) Creatinine 0.8 mg/dL (0.6-1.0) Estimated GFR (Cockcroft-Gault) 82.1 BUN/Creatinine Ratio 21 (6-20) H Glucose Level 95 mg/dL (70-99) Calcium Level 8.8 mg/dL (8.5-10.1) Total Bilirubin 0.5 mg/dL (0.2-1.0) Aspartate Amino Transferase (AST) 12 U/L (15-37) L Alanine Aminotransferase (ALT) 25 U/L (14-59) Alkaline Phosphatase 102 U/L (46-116) Troponin I Quantitative < 0.017 ng/mL (0.000-0.055) Total Protein 7.2 g/dL (6.4-8.2) Albumin 3.6 g/dL (3.4-5.0) Albumin/Globulin Ratio 1.0 (1.0-1.7) Lipase 173 U/L (73-393) Laboratory Tests 09/09/18 16:18 Laboratory Tests 09/09/18 16:18 EKG EKG [] Radiology/Procedures Radiology/Procedures PROCEDURE: CT ABD PELV W/ IV CONTRST ONLY Examination: CT ABD PELV W/ IV CONTRST ONLY History: left sided abd pain, [id number] 75ml, no priors Comparison/Correlation: None Findings: Axial images of the abdomen and pelvis were obtained following IV contrast. Sagittal and coronal reformatted images were provided. Punctate nodule at the right lateral costophrenic sulcus is noncalcified. Liver, spleen, pancreas, and adrenal glands are normal. Cholecystectomy evident. Right renal cysts are present and benign in appearance. Very small to catheterize left renal lesion which may represent a cyst is suggested. Fluid and debris noted to distend the stomach. Appendix is normal. Moderate quantity of stool is present in the colon. No enlarged abdominal or pelvic lymph nodes. Small umbilical hernia contains omental fat. Essure implants bilaterally seen. Urinary bladder is unremarkable. Right adnexal follicles are physiologic in appearance. Left adnexal region may also have small physiologic follicles. Bony structures are unremarkable. Impression: No inflammatory process, suspicious mass, or obstruction. Electronically signed by: Derrick Zuñiga MD (09/09/2018 5:12 PM) [id number] DICTATED and SIGNED BY: JIM OVIEDO MD DATE: 09/09/18 1707 Course & Med Decision Making Course & Med Decision Making Pertinent Labs and Imaging studies reviewed. (See chart for details) 1725: Discussed test results with patient with labs unremarkable, UA with no infection, negative UCG, and CT with moderate stools shown without obvious obstruction and no other acute findings. Patient reports she had some improvement in pain following IV fentanyl. Discussed plans for home discharge with patient to follow-up with GI doctor outpatient if symptoms persist. Patient remains nontoxic and in no visible distress at this time. Will provide patient with prescription for Bentyl and GI referral information on discharge paperwork. Education provided on s&s to return to ER for. Discussed increase of water intake and [id number] stool softeners as directed on container. Discharge instructions were discussed. Dragon Disclaimer Dragon Disclaimer This electronic medical record was generated, in whole or in part, using a voice recognition dictation system. Departure Departure Impression: Primary Impression: Abdominal pain Disposition: HOME, SELF-CARE Condition: STABLE Referrals: ARYAN KELLER MD (PCP) MOOKIE JOHNSTON MD Patient Instructions: Abdominal Pain Additional Instructions: As discussed increase water intake. You can use [id number] stool softeners such as MiraLAX as directed on container. If symptoms persist follow-up with Gastrointestinal (GI) doctor for further care and reevaluation. Scripts Dicyclomine Hcl (DICYCLOMINE HCL) 10 Mg Capsule 1 CAP PO PRN Q6HRS PRN for PAIN MDD 40mg, #12 CAP 0 Refills Prov: BIBI VILLAFANA APRN 09/09/18 BIBI VILLAFANA APRN Sep 09, 2018 16:09
[2018-09-09 16:35] LABS: BASO # 0.1 x10^3/uL (0.0-0.2); BASO % 1 % (0-3); EOS # 0.4 x10^3/uL (0.0-0.7); EOS % 4 % (0-3); HEMATOCRIT 39.3 % (36.0-47.0); HEMOGLOBIN 13.8 g/dL (12.0-15.5); LYMPH # 2.6 x10^3/uL (1.0-4.8); LYMPH % 27 % (24-48); MEAN CORPUSCULAR HEMOGLOBIN 31 pg (25-35); MEAN CORPUSCULAR HGB CONC 35 g/dL (31-37); MEAN CORPUSCULAR VOLUME 88 fL (79-100); MONO # 0.7 x10^3/uL (0.0-1.1); MONO % 7 % (0-9); NEUT % 61 % (31-73); PLATELET COUNT 364 x10^3/uL (140-400); RED BLOOD COUNT 4.48 x10^6/uL (3.50-5.40); RED CELL DISTRIBUTION WIDTH 13.3 % (11.5-14.5); WHITE BLOOD COUNT 9.7 x10^3/uL (4.0-11.0)
[2018-09-09 16:47] LABS: CALCIUM 8.8 mg/dL (8.5-10.1); CREATININE 0.8 mg/dL (0.6-1.0); GFR 82.1; POTASSIUM 4.3 mmol/L (3.5-5.1)
[2018-09-09 16:52] LABS: ALBUMIN 3.6 g/dL (3.4-5.0); TOTAL BILIRUBIN 0.5 mg/dL (0.2-1.0); TOTAL PROTEIN 7.2 g/dL (6.4-8.2)
[2018-09-09] MEDS ORDERED: CONTRAST GIVEN. MC PRN (17:00)
[2018-09-09] MEDS ORDERED: IOHEXOL 300 MG/ML 100ML VIAL. IV ONE (17:00)
--- NOTE | 2018-09-09 17:16 | RAD ---
Examination: CT ABD PELV W/ IV CONTRST ONLY History: left sided abd pain, [id number] 75ml, no priors Comparison/Correlation: None Findings: Axial images of the abdomen and pelvis were obtained following IV contrast. Sagittal and coronal reformatted images were provided. Punctate nodule at the right lateral costophrenic sulcus is noncalcified. Liver, spleen, pancreas, and adrenal glands are normal. Cholecystectomy evident. Right renal cysts are present and benign in appearance. Very small to catheterize left renal lesion which may represent a cyst is suggested. Fluid and debris noted to distend the stomach. Appendix is normal. Moderate quantity of stool is present in the colon. No enlarged abdominal or pelvic lymph nodes. Small umbilical hernia contains omental fat. Essure implants bilaterally seen. Urinary bladder is unremarkable. Right adnexal follicles are physiologic in appearance. Left adnexal region may also have small physiologic follicles. Bony structures are unremarkable. Impression: No inflammatory process, suspicious mass, or obstruction. Electronically signed by: Derrick Zuñiga MD (09/09/2018 5:12 PM) [id number]
[2018-09-09 17:37] VITALS: BP 112/73
[2018-09-09] MEDS ORDERED: DICY10CA3 PO (17:37)
--- NOTE | 2018-09-10 01:06 | EKG ---
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
== END 2018-09-09 18:00 | disposition home or self-care (01) ==
LOC: ER 13:47
DX: R10.9 Unspecified abdominal pain (principal); R11.0 Nausea
CPT/HCPCS: 36415; 74177; 80053; 81001; 81025; 83690; 84484; 85025; 93005; 96374; 96375; 99284; J2405; J3010; J7030; Q9967

== ENCOUNTER 2019-05-13 20:46 | Emergency (ER) | payer OTHER ==
[~2019-05-13] VITALS: Ht 149.9 cm; Wt 61.2 kg
[~2019-05-13 20:46] MED LIST changes: +DICY10CA3 PO
--- NOTE | 2019-05-13 21:26 | PHYS DOC ---
Past Medical History Past Medical History: No Pertinent History Past Surgical History: Cholecystectomy Alcohol Use: None Drug Use: None Adult General Chief Complaint Chief Complaint: ABDOMINAL PAIN HPI HPI Patient is a 33-year-old female who presents with complaint of acute onset of epigastric abdominal pain that started about an hour ago. Patient states that pain had radiated up into her chest and she became pale and diaphoretic. She states that she felt like she was given a pass out. She states that when the pain had started, pain was a 10 out of 10 but currently is about a 4 out of 10. She states that she has history of cholecystectomy. She states that the only thing that she had different tonight that she thinks could've caused symptoms was a sangria.[] Review of Systems Review of Systems Constitutional: Denies fever or chills [] Respiratory: Denies cough or shortness of breath [] Cardiovascular: No additional information not addressed in HPI [] GI: Complains of epigastric abdominal pain with nausea and vomiting. Denies diarrhea [] Musculoskeletal: Denies back pain or joint pain [] Integument: Denies rash or skin lesions [] Neurologic: Denies headache, focal weakness or sensory changes [] All other systems were reviewed and found to be within normal limits, except as documented in this note. Current Medications Current Medications Current Medications Medications (Trade) Dose Ordered Sig/[facility] Start Time Stop Time Status Last Admin Dose Admin Famotidine (Pepcid Vial) 20 mg 1X ONCE 05/13/19 22:00 05/13/19 22:01 DC 05/13/19 22:10 20 MG Info (CONTRAST GIVEN -- Rx MONITORING) 1 each PRN DAILY PRN 05/13/19 23:00 05/13/19 23:57 DC Iohexol (Omnipaque 300 Mg/ml) 75 ml 1X ONCE 05/13/19 23:00 05/13/19 23:01 DC 05/13/19 23:11 75 ML Multi-Ingredient Mouthwash/Gargle (Gi Cocktail) 20 ml 1X ONCE 05/13/19 22:00 05/13/19 22:01 DC 05/13/19 22:10 20 ML Ondansetron HCl (Zofran) 4 mg 1X ONCE 05/13/19 22:00 05/13/19 22:01 DC 05/13/19 22:10 4 MG Sodium Chloride 1,000 ml @ 1,000 mls/hr Q1H 05/13/19 22:00 05/13/19 22:59 DC 05/13/19 22:10 1,000 MLS/HR Allergies Allergies Allergies Coded Allergies Type Severity Reaction Last Updated Verified No Known Drug Allergies 03/05/17 No Physical Exam Physical Exam Constitutional: Well developed, well nourished, no acute distress, non-toxic mode earance. [] HENT: Normocephalic, atraumatic, bilateral external ears normal, oropharynx moist, no oral exudates, nose normal. [] Eyes: PERRLA, EOMI, conjunctiva normal, no discharge. [] Neck: Normal range of motion, no tenderness, supple, no stridor. [] Cardiovascular:Heart rate regular rhythm, no murmur [] Lungs & Thorax: Bilateral breath sounds clear to auscultation [] Abdomen: Bowel sounds normal, soft, with epigastric tenderness. [] Skin: Warm, dry, no erythema, no rash. [] Extremities: No tenderness, no cyanosis, no clubbing, ROM intact, no edema. [] Neurologic: Alert and oriented X 3, no focal deficits noted. [] Current Patient Data Vital Signs Vital Signs Date Time Temp Pulse Resp B/P (MAP) Pulse Ox O2 Delivery O2 Flow Rate FiO2 05/13/19 23:00 58 18 112/65 (81) 98 Room Air 05/13/19 21:10 97.9 97.9 Lab Values Laboratory Tests Test 05/13/19 21:20 05/13/19 21:22 05/13/19 21:35 Urine Collection Type Unknown Urine Color Yellow Urine Clarity Clear Urine pH 6.0 Urine Specific [place] 1.025 Urine Protein Negative mg/dL (NEG-TRACE) Urine Glucose (UA) Negative mg/dL (NEG) Urine Ketones (Stick) Negative mg/dL (NEG) Urine Blood Negative (NEG) Urine Nitrite Negative (NEG) Urine Bilirubin Negative (NEG) Urine Urobilinogen Dipstick 0.2 mg/dL (0.2 mg/dL) Urine Leukocyte Esterase Negative (NEG) Urine RBC 0 /HPF (0-2) Urine WBC 1-4 /HPF (0-4) Urine Squamous Epithelial Cells Mod /LPF Urine Bacteria 0 /HPF (0-FEW) Urine Mucus Mod /LPF POC Urine HCG, Qualitative Hcg negative (Negative) White Blood Count 8.8 x10^3/uL (4.0-11.0) Red Blood Count 4.56 x10^6/uL (3.50-5.40) Hemoglobin 13.8 g/dL (12.0-15.5) Hematocrit 39.6 % (36.0-47.0) Mean Corpuscular Volume 87 fL (79-100) Mean Corpuscular Hemoglobin 30 pg (25-35) Mean Corpuscular Hemoglobin Concent 35 g/dL (31-37) Red Cell Distribution Width 13.3 % (11.5-14.5) Platelet Count 382 x10^3/uL (140-400) Neutrophils (%) (Auto) 56 % (31-73) Lymphocytes (%) (Auto) 30 % (24-48) Monocytes (%) (Auto) 8 % (0-9) Eosinophils (%) (Auto) 6 % (0-3) H Basophils (%) (Auto) 1 % (0-3) Neutrophils # (Auto) 4.9 x10^3/uL (1.8-7.7) Lymphocytes # (Auto) 2.6 x10^3/uL (1.0-4.8) Monocytes # (Auto) 0.7 x10^3/uL (0.0-1.1) Eosinophils # (Auto) 0.5 x10^3/uL (0.0-0.7) Basophils # (Auto) 0.1 x10^3/uL (0.0-0.2) Sodium Level 140 mmol/L (136-145) Potassium Level 3.9 mmol/L (3.5-5.1) Chloride Level 103 mmol/L (98-107) Carbon Dioxide Level 29 mmol/L (21-32) Anion Gap 8 (6-14) Blood Urea Nitrogen 20 mg/dL (7-20) Creatinine 0.8 mg/dL (0.6-1.0) Estimated GFR (Cockcroft-Gault) 82.1 BUN/Creatinine Ratio 25 (6-20) H Glucose Level 71 mg/dL (70-99) Calcium Level 8.8 mg/dL (8.5-10.1) Total Bilirubin 0.5 mg/dL (0.2-1.0) Aspartate Amino Transferase (AST) 36 U/L (15-37) Alanine Aminotransferase (ALT) 38 U/L (14-59) Alkaline Phosphatase 91 U/L (46-116) Total Protein 7.6 g/dL (6.4-8.2) Albumin 3.9 g/dL (3.4-5.0) Albumin/Globulin Ratio 1.1 (1.0-1.7) Lipase 155 U/L (73-393) Laboratory Tests 05/13/19 21:35 Laboratory Tests 05/13/19 21:35 EKG EKG [] Radiology/Procedures Radiology/Procedures [] Impressions: CT ABD PELV W/ IV CONTRST ONLY Indication: Abdominal pain Technique: Postcontrast CT imaging was performed of the abdomen pelvis, multiplanar reconstruction images submitted. No oral contrast was given. One or more of the following individualized dose reduction techniques were utilized for this examination: 1. Automated exposure control 2. Adjustment of the mA and/or kV according to patient size 3. Use of iterative reconstruction technique. Comparison: September 09, 2018 Findings: There is no significant abnormality of the limited visualized lung bases. There has been cholecystectomy as seen previously. No new focal abnormality of the liver, spleen, pancreas. There is no adrenal nodularity. Both kidneys enhance, no hydronephrosis. There is a small 0.2 to 0.3 cm left renal calculus as seen previously, also punctate calculus superiorly. There is small 0.2 cm mid right renal calculus as seen previously, also likely a couple of other punctate calculi present. There are again 2 hypodense foci of the right kidney which have density characteristics greater than simple cysts, size similar with the largest superiorly about 1.1 cm and smaller focus inferiorly about 0.8 cm. Accurate evaluation of bowel is limited without oral contrast. Bowel is not significantly dilated. There is no free air or significant free fluid. There are bilateral tubal occlusion devices. Mild fullness of the right adnexa is similar in appearance. Normal appendix is visualized without adjacent inflammatory-type change. There is retained stool in segments of colon. IMPRESSION: 1. There are small nonobstructive bilateral renal calculi, no hydronephrosis. There are again some hypodense foci of the right kidney indeterminate for simple cysts although may be somewhat complex cysts. 2. There is no CT evidence of acute appendicitis. Electronically signed by: Pablo Cowart MD (05/13/2019 11:31 PM) [facility] Course & Med Decision Making Course & Med Decision Making Pertinent Labs and Imaging studies reviewed. (See chart for details) [] Dragon Disclaimer Dragon Disclaimer This electronic medical record was generated, in whole or in part, using a voice recognition dictation system. Departure Departure Impression: Primary Impression: Abdominal pain Disposition: HOME, SELF-CARE Condition: STABLE Referrals: ARYAN KELLER MD (PCP) Patient Instructions: Abdominal Pain Scripts Ondansetron Hcl (ZOFRAN) 4 Mg Tablet 4 MG PO PRN TID PRN for NAUSEA, #15 nausea/vomiting Prov: BRET MEENZES Jr. DO 05/13/19 Tramadol Hcl (TRAMADOL HCL) 50 Mg Tablet 50 MG PO Q6HRS PRN for PAIN, #10 TAB Prov: BRET MENEZES Jr. DO 05/13/19 Problem Qualifiers Primary Impression: Abdominal pain Abdominal location: epigastric Qualified Codes: R10.13 - Epigastric pain BRET MENEZES Jr. DO May 13, 2019 21:26
[2019-05-13 21:32] LABS: BILIRUBIN,URINE NEGATIVE (NEG); CLARITY,URINE CLEAR; COLOR,URINE YELLOW; NITRITE,URINE NEGATIVE (NEG); PROTEIN,URINE NEGATIVE (NEG-TRACE); UROBILINOGEN,URINE 0.2 mg/dL (0.2 mg/dL)
[2019-05-13 21:36] LABS: SQUAMOUS EPITHELIAL CELL,UR MOD /LPF
[2019-05-13 21:37] LABS: BACTERIA,URINE 0 /HPF (0-FEW); RBC,URINE 0 /HPF (0-2)
[2019-05-13 21:48] LABS: BASO # 0.1 x10^3/uL (0.0-0.2); BASO % 1 % (0-3); EOS # 0.5 x10^3/uL (0.0-0.7); EOS % 6 % (0-3); HEMATOCRIT 39.6 % (36.0-47.0); HEMOGLOBIN 13.8 g/dL (12.0-15.5); LYMPH # 2.6 x10^3/uL (1.0-4.8); LYMPH % 30 % (24-48); MEAN CORPUSCULAR HEMOGLOBIN 30 pg (25-35); MEAN CORPUSCULAR HGB CONC 35 g/dL (31-37); MEAN CORPUSCULAR VOLUME 87 fL (79-100); MONO # 0.7 x10^3/uL (0.0-1.1); MONO % 8 % (0-9); NEUT # 4.9 x10^3/uL (1.8-7.7); NEUT % 56 % (31-73); PLATELET COUNT 382 x10^3/uL (140-400); RED BLOOD COUNT 4.56 x10^6/uL (3.50-5.40); RED CELL DISTRIBUTION WIDTH 13.3 % (11.5-14.5); WHITE BLOOD COUNT 8.8 x10^3/uL (4.0-11.0)
[2019-05-13 21:56] LABS: CALCIUM 8.8 mg/dL (8.5-10.1); CREATININE 0.8 mg/dL (0.6-1.0); GFR 82.1; POTASSIUM 3.9 mmol/L (3.5-5.1)
[2019-05-13] MEDS ORDERED: ONDANSETRON PF 4 MG/2 ML VIAL. IV ONE (22:00)
[2019-05-13] MEDS ORDERED: IV NORMAL SALINE 1000ML BAG 1,000 ML IV SCH (22:00)
[2019-05-13] MEDS ORDERED: LIDO:MAALOX 1:1 20 ML SINGLE DOSE. SWSW ONE (22:00)
[2019-05-13] MEDS ORDERED: FAMOTIDINE 20 MG/2 ML VIAL IVP ONE (22:00)
[2019-05-13 22:01] LABS: ALBUMIN 3.9 g/dL (3.4-5.0); ALBUMIN/GLOBULIN RATIO 1.1 (1.0-1.7); TOTAL BILIRUBIN 0.5 mg/dL (0.2-1.0); TOTAL PROTEIN 7.6 g/dL (6.4-8.2)
[2019-05-13 23:00] VITALS: BP 112/65
[2019-05-13] MEDS ORDERED: IOHEXOL 300 MG/ML 100ML VIAL. IV ONE (23:00)
[2019-05-13] MEDS ORDERED: CONTRAST GIVEN. MC PRN (23:00)
--- NOTE | 2019-05-13 23:34 | RAD ---
CT ABD PELV W/ IV CONTRST ONLY Indication: Abdominal pain Technique: Postcontrast CT imaging was performed of the abdomen pelvis, multiplanar reconstruction images submitted. No oral contrast was given. One or more of the following individualized dose reduction techniques were utilized for this examination: 1. Automated exposure control 2. Adjustment of the mA and/or kV according to patient size 3. Use of iterative reconstruction technique. Comparison: September 09, 2018 Findings: There is no significant abnormality of the limited visualized lung bases. There has been cholecystectomy as seen previously. No new focal abnormality of the liver, spleen, pancreas. There is no adrenal nodularity. Both kidneys enhance, no hydronephrosis. There is a small 0.2 to 0.3 cm left renal calculus as seen previously, also punctate calculus superiorly. There is small 0.2 cm mid right renal calculus as seen previously, also likely a couple of other punctate calculi present. There are again 2 hypodense foci of the right kidney which have density characteristics greater than simple cysts, size similar with the largest superiorly about 1.1 cm and smaller focus inferiorly about 0.8 cm. Accurate evaluation of bowel is limited without oral contrast. Bowel is not significantly dilated. There is no free air or significant free fluid. There are bilateral tubal occlusion devices. Mild fullness of the right adnexa is similar in appearance. Normal appendix is visualized without adjacent inflammatory-type change. There is retained stool in segments of colon. IMPRESSION: 1. There are small nonobstructive bilateral renal calculi, no hydronephrosis. There are again some hypodense foci of the right kidney indeterminate for simple cysts although may be somewhat complex cysts. 2. There is no CT evidence of acute appendicitis. Electronically signed by: Pablo Cowart MD (05/13/2019 11:31 PM) [facility]
[2019-05-13] MEDS ORDERED: TRAM50TA PO (23:49)
[2019-05-13] MEDS ORDERED: ONDA4TAB7 PO (23:49)
--- NOTE | 2019-05-16 04:29 | EKG ---
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
== END 2019-05-13 23:57 | disposition home or self-care (01) ==
LOC: ER 20:46
DX: R10.13 Epigastric pain (principal); R11.2 Nausea with vomiting, unspecified; N20.0 Calculus of kidney; Z90.49 Acquired absence of other specified parts of digestive tract
CPT/HCPCS: 36415; 74177; 80053; 81001; 81025; 83690; 85025; 93005; 96361; 96374; 96375; 99285; J2405; J3490; J7030; Q9967

== ENCOUNTER 2020-11-10 12:24 | Emergency (ER) | payer BC, OTHER ==
[~2020-11-10] VITALS: Ht 149.9 cm; Wt 63.6 kg
[~2020-11-10 12:24] MED LIST changes: +TRAM50TA PO
[2020-11-10 13:18] LABS: BASO % 1 % (0-3); EOS # 0.2 x10^3/uL (0.0-0.7); EOS % 2 % (0-3); HEMATOCRIT 40.3 % (36.0-47.0); LYMPH # 2.2 x10^3/uL (1.0-4.8); LYMPH % 26 % (24-48); MEAN CORPUSCULAR HEMOGLOBIN 30 pg (25-35); MEAN CORPUSCULAR HGB CONC 35 g/dL (31-37); MEAN CORPUSCULAR VOLUME 85 fL (79-100); MONO # 0.8 x10^3/uL (0.0-1.1); MONO % 10 % (0-9); NEUT # 5.3 x10^3/uL (1.8-7.7); NEUT % 62 % (31-73); PLATELET COUNT 341 x10^3/uL (140-400); RED BLOOD COUNT 4.72 x10^6/uL (3.50-5.40); RED CELL DISTRIBUTION WIDTH 13.2 % (11.5-14.5); WHITE BLOOD COUNT 8.6 x10^3/uL (4.0-11.0)
--- NOTE | 2020-11-10 13:23 | ED.ADGEN ---
Past Medical History Past Medical History: No Pertinent History Past Surgical History: Cholecystectomy Smoking Status: Never Smoker Alcohol Use: None Drug Use: None General Adult EDM: Chief Complaint: TREMORS HPI: HPI: Patient is a 35 year old female who presents emergency department with reports of feeling shaky on the inside for the last 3 days. Patient states she feels scared that there is something wrong with her. She reports that she had COVID-19 last summer and that she has also been vaccinated against COVID-19. Her last immunization was 1 month ago. She denies any cough, shortness of breath, sore throat, fever, abdominal pain, nausea, vomiting, diarrhea, numbness, tingling, or weakness. Patient states at times she has felt like her insides are shaking or that her heart is beating fast. Patient states she is also noticed that at times her hands will be shaky. She denies any recent increased stressors in her life. She states that she stopped drinking coffee and has been eating healthier over recent weeks. Patient states that she has been taking a weight loss supplement recently but she stopped taking that supplement 2 weeks ago because she did not think it was helping her lose weight. She denies any history of anxiety or depression. She denies any illicit drug use or alcohol use. The patient currently denies any pain. Review of Systems: Review of Systems: Complete ROS is negative unless otherwise noted in HPI. Current Medications: Current Medications Medications (Trade) Dose Ordered Sig/[facility] Start Time Stop Time Status Last Admin Dose Admin Lorazepam (Ativan) 0.5 mg 1X ONCE 11/10/20 14:00 11/10/20 14:01 DC 11/10/20 14:02 0.5 MG Allergies: Allergies: Allergies Coded Allergies Type Severity Reaction Last Updated Verified No Known Drug Allergies 03/05/17 No Physical Exam: PE: See Above Constitutional: Well developed, well nourished, no acute distress, non-toxic appearance, appears anxious. [] HENT: Normocephalic, atraumatic, bilateral external ears normal, nose normal. [] Eyes: PERRLA, EOMI, conjunctiva normal, no discharge. [] Neck: Normal range of motion, no stridor. [] Cardiovascular:Heart rate regular rhythm Lungs & Thorax: Respirations even and unlabored, no retractions, no respiratory distress Skin: Warm, dry, no erythema, no rash. [] Extremities: No cyanosis, ROM intact, no edema. [] Neurologic: Alert and oriented X 3, normal motor, normal sensory, no tremors, no focal deficits noted. [] Psychologic: Affect anxious, judgement normal, mood normal. [] Current Patient Data: Labs: Laboratory Tests Test 11/10/20 13:05 11/10/20 13:06 11/10/20 13:28 Urine Collection Type Unknown Urine Color Yellow Urine Clarity Clear Urine pH 7.0 (<5.0-8.0) Urine Specific [place] 1.020 (1.000-1.030) Urine Protein Negative mg/dL (NEG-TRACE) Urine Glucose (UA) Negative mg/dL (NEG) Urine Ketones (Stick) Negative mg/dL (NEG) Urine Blood Negative (NEG) Urine Nitrite Negative (NEG) Urine Bilirubin Negative (NEG) Urine Urobilinogen Dipstick 1.0 mg/dL (0.2 mg/dL) Urine Leukocyte Esterase Negative (NEG) Urine RBC Occ /HPF (0-2) Urine WBC Occ /HPF (0-4) Urine Squamous Epithelial Cells Mod /LPF Urine Bacteria Few /HPF (0-FEW) Urine Mucus Mod /LPF Urine Opiates Screen Neg (NEG) Urine Methadone Screen Neg (NEG) Urine Barbiturates Neg (NEG) Urine Phencyclidine Screen Neg (NEG) Urine Amphetamine/Methamphetamine Neg (NEG) Urine Benzodiazepines Screen Neg (NEG) Urine Cocaine Screen Neg (NEG) Urine Cannabinoids Screen Neg (NEG) Urine Ethyl Alcohol Neg (NEG) White Blood Count 8.6 x10^3/uL (4.0-11.0) Red Blood Count 4.72 x10^6/uL (3.50-5.40) Hemoglobin 14.0 g/dL (12.0-15.5) Hematocrit 40.3 % (36.0-47.0) Mean Corpuscular Volume 85 fL (79-100) Mean Corpuscular Hemoglobin 30 pg (25-35) Mean Corpuscular Hemoglobin Concent 35 g/dL (31-37) Red Cell Distribution Width 13.2 % (11.5-14.5) Platelet Count 341 x10^3/uL (140-400) Neutrophils (%) (Auto) 62 % (31-73) Lymphocytes (%) (Auto) 26 % (24-48) Monocytes (%) (Auto) 10 % (0-9) H Eosinophils (%) (Auto) 2 % (0-3) Basophils (%) (Auto) 1 % (0-3) Neutrophils # (Auto) 5.3 x10^3/uL (1.8-7.7) Lymphocytes # (Auto) 2.2 x10^3/uL (1.0-4.8) Monocytes # (Auto) 0.8 x10^3/uL (0.0-1.1) Eosinophils # (Auto) 0.2 x10^3/uL (0.0-0.7) Basophils # (Auto) 0.0 x10^3/uL (0.0-0.2) Sodium Level 138 mmol/L (136-145) Potassium Level 3.9 mmol/L (3.5-5.1) Chloride Level 104 mmol/L (98-107) Carbon Dioxide Level 27 mmol/L (21-32) Anion Gap 7 (6-14) Blood Urea Nitrogen 11 mg/dL (7-20) Creatinine 0.8 mg/dL (0.6-1.0) Estimated GFR (Cockcroft-Gault) 81.2 BUN/Creatinine Ratio 14 (6-20) Glucose Level 90 mg/dL (70-99) Calcium Level 8.5 mg/dL (8.5-10.1) Magnesium Level 2.0 mg/dL (1.8-2.4) Total Bilirubin 0.6 mg/dL (0.2-1.0) Aspartate Amino Transferase (AST) 14 U/L (15-37) L Alanine Aminotransferase (ALT) 21 U/L (14-59) Alkaline Phosphatase 88 U/L (46-116) Total Protein 7.5 g/dL (6.4-8.2) Albumin 3.8 g/dL (3.4-5.0) Albumin/Globulin Ratio 1.0 (1.0-1.7) POC Urine HCG, Qualitative Hcg negative (Negative) Laboratory Tests 11/10/20 13:06 Laboratory Tests 11/10/20 13:06 Vital Signs: Vital Signs Date Time Temp Pulse Resp B/P (MAP) Pulse Ox O2 Delivery O2 Flow Rate FiO2 11/10/20 14:17 82 105/66 (79) 97 Room Air 11/10/20 12:50 98.5 18 98.5 EKG: EK-SR rate 87, no STEMI read by Dr. Lewis. [] Heart Score: Risk Factors: Risk Factors: DM, Current or recent (<one month) smoker, HTN, HLP, family history of CAD, obesity. Risk Scores: Score 0 - 3: 2.5% MACE over next 6 weeks - Discharge Home Score 4 - 6: 20.3% MACE over next 6 weeks - Admit for Clinical Observation Score 7 - 10: 72.7% MACE over next 6 weeks - Early Invasive Strategies Radiology/Procedures: Radiology/Procedures: [] Course & Med Decision Making: Course & Med Decision Making Pertinent Labs and Imaging studies reviewed. (See chart for details) Patient is a 35-year-old female who presents emergency department with concerns of feeling shaky on the inside. EKG revealed normal sinus rhythm, CBC and CMP were unremarkable. Patient's UA was also unremarkable, urine drug screen was negative for any illicit substances. The patient was given 0.5 mg of Ativan in the emergency department. She reported feeling a little better after this medication. I encouraged the patient to follow-up with her primary care doctor next 1 to 2 days, I recommended the patient have her thyroid function tests evaluated by her PCP. She was return to the ER if symptoms worsened or fever develop. Patient verbalized an understanding of home care, medications, follow-up, and return to ED instructions and was in agreement with the plan of care. [] Dragon Disclaimer: Dragon Disclaimer: This electronic medical record was generated, in whole or in part, using a voice recognition dictation system. Departure Departure Impression: Primary Impression: Shakiness Disposition: 01 DC HOME SELF CARE/HOMELESS Condition: STABLE Referrals: ARYAN URENA MD (PCP) Patient Instructions: Medical Screening Exam Additional Instructions: You were evaluated today for shakiness. Labs did not reveal any abnormal findings and your EKG was normal. I recommend that you follow-up with your primary care doctor, Aryan Urena, for further evaluation and to have your thyroid function tests evaluated. Your symptoms may also be caused by anxiety. Please follow-up with your primary care doctor as instructed, return to the ER if your symptoms worsen or fever develops. Thank you for choosing [facility]! SADIA CLARK APRN Nov 10, 2020 13:23
[2020-11-10 13:27] LABS: CALCIUM 8.5 mg/dL (8.5-10.1); CREATININE 0.8 mg/dL (0.6-1.0); GFR 81.2; POTASSIUM 3.9 mmol/L (3.5-5.1)
[2020-11-10 13:35] LABS: ALBUMIN 3.8 g/dL (3.4-5.0); TOTAL BILIRUBIN 0.6 mg/dL (0.2-1.0); TOTAL PROTEIN 7.5 g/dL (6.4-8.2)
[2020-11-10 13:42] LABS: BARBITURATES NEG (NEG); BENZODIAZEPINES NEG (NEG); CANNABINOIDS NEG (NEG); COCAINE NEG (NEG); METHADONE NEG (NEG); OPIATES NEG (NEG); PHENCYCLIDINE NEG (NEG)
[2020-11-10 13:44] LABS: BILIRUBIN,URINE NEGATIVE (NEG); CLARITY,URINE CLEAR; COLOR,URINE YELLOW; NITRITE,URINE NEGATIVE (NEG); PROTEIN,URINE NEGATIVE (NEG-TRACE)
[2020-11-10 13:45] LABS: BACTERIA,URINE FEW /HPF (0-FEW); RBC,URINE OCC /HPF (0-2); WBC,URINE OCC /HPF (0-4)
[2020-11-10 13:47] LABS: AMPHETAMINE/METHAMPHETAMINE NEG (NEG)
[2020-11-10] MEDS ORDERED: LORazepam 0.5 MG TABLET PO ONE (14:00)
[2020-11-10 14:17] VITALS: BP 105/66
--- NOTE | 2020-11-10 15:30 | EKG ---
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
== END 2020-11-10 14:52 | disposition home or self-care (01) ==
LOC: ER 12:24
DX: R25.1 Tremor, unspecified (principal)
CPT/HCPCS: 36415; 80053; 80307; 81001; 81025; 83735; 85025; 93005; 99284

== ENCOUNTER 2021-05-22 01:26 | Emergency (ER) | payer BC ==
[~2021-05-22] VITALS: Ht 149.9 cm; Wt 68.2 kg
[2021-05-22 01:56] LABS: BILIRUBIN,URINE NEGATIVE (NEG); CLARITY,URINE CLEAR; COLOR,URINE YELLOW; NITRITE,URINE NEGATIVE (NEG); PROTEIN,URINE NEGATIVE (NEG-TRACE); UROBILINOGEN,URINE 0.2 mg/dL (0.2 mg/dL)
[2021-05-22 02:09] LABS: BACTERIA,URINE 0 /HPF (0-FEW); RBC,URINE 20-40 /HPF (0-2); WBC,URINE RARE /HPF (0-4)
[2021-05-22 02:11] LABS: BASO # 0.1 x10^3/uL (0.0-0.2); BASO % 1 % (0-3); EOS # 0.5 x10^3/uL (0.0-0.7); EOS % 4 % (0-3); HEMATOCRIT 37.8 % (36.0-47.0); LYMPH # 4.9 x10^3/uL (1.0-4.8); LYMPH % 41 % (24-48); MEAN CORPUSCULAR HEMOGLOBIN 30 pg (25-35); MEAN CORPUSCULAR HGB CONC 34 g/dL (31-37); MEAN CORPUSCULAR VOLUME 86 fL (79-100); MONO % 9 % (0-9); NEUT # 5.5 x10^3/uL (1.8-7.7); NEUT % 46 % (31-73); PLATELET COUNT 364 x10^3/uL (140-400); RED BLOOD COUNT 4.38 x10^6/uL (3.50-5.40); RED CELL DISTRIBUTION WIDTH 13.4 % (11.5-14.5); WHITE BLOOD COUNT 11.9 x10^3/uL (4.0-11.0)
[2021-05-22] MEDS ORDERED: IV NORMAL SALINE 1000ML BAG 1,000 ML IV ONE (02:15)
[2021-05-22 02:28] LABS: CALCIUM 8.9 mg/dL (8.5-10.1); CREATININE 0.8 mg/dL (0.6-1.0); GFR 81.2; POTASSIUM 3.9 mmol/L (3.5-5.1)
[2021-05-22 02:33] LABS: ALBUMIN 3.6 g/dL (3.4-5.0); TOTAL BILIRUBIN 0.3 mg/dL (0.2-1.0); TOTAL PROTEIN 7.3 g/dL (6.4-8.2)
--- NOTE | 2021-05-22 03:33 | RAD ---
CT abdomen and pelvis without contrast: Reason for examination: Right flank pain. Helical images were obtained through the abdomen and pelvis with no intravenous or oral contrast admi nistered. Reconstruction was performed in sagittal and coronal planes. Exposure: One or more of the following individualized dose reduction techniques were utilized for thi s examination: 1. Automated exposure control 2. Adjustment of the mA and/or kV according to patient size 3. Use of iterative reconstruction technique. The lung bases are clear. The heart size is normal with no pericardial effusion. No abnormality seen at the liver, spleen, adrenal glands or pancreas. The gallbladder is surgically a bsent. There are nonobstructing calculi present in the kidneys bilaterally. No hydronephrosis or obst ructive uropathy is evident. No abnormality seen at the appendix. The colon shows no diverticulosis, diverticulitis or colitis. No abnormality seen at the stomach or duodenum. The small intestinal tract shows no abnormal dilatation, wall thickening or obstruction. No abnormality seen at the bladder or uterus. No gross ovarian/adnexal masses are seen. No free fluid or free air is seen in the abdomen or pelvis. No acute bony abnormalities are seen. IMPRESSION: Bilateral nonobstructing renal calculi. No hydronephrosis or obstructive uropathy evident. No other focal abnormality seen in the abdomen or pelvis. Electronically signed by: Merary Phelps MD (05/22/2021 3:31 AM) [facility]
--- NOTE | 2021-05-22 03:42 | PHYS DOC ---
Past Medical History Past Medical History: GERD Past Surgical History: Cholecystectomy Additional Past Surgical Histo: ESSURE Smoking Status: Never Smoker Alcohol Use: None Drug Use: None General Adult EDM: Chief Complaint: FLANK PAIN HPI: HPI: 35-year-old female who denies any past medical history presents the ED with complaints of sharp, shooting right flank pain that radiates into her right upper and right lower quadrant that started a few hours prior to arrival stating " I feel like I need to pee." Pain exacerbated with movement. Reports LMP was seen last month. Last bowel movement was yesterday, normal with no blood. Past surgical history of tubal coiling and cholecystectomy. No prior history of kidney stones. Denies any history of trauma, history of IV drug use, history of cancer, history of sciatica, history of malignancy, history of immunocompromise state, neurologic complaints including saddle anesthesia, weakness or paresthesias, urinary retention, bowel or bladder incontinence, night pain, fever/chills/night sweats, unexplained weight loss, anticoagulants or coagulopathy, prolonged steroid use, older age, presence of contusions or abrasions. Review of Systems: Review of Systems: Constitutional: Denies fever or chills. [] Eyes: Denies change in visual acuity. [] HENT: Denies nasal congestion or sore throat. [] Respiratory: Denies cough or shortness of breath. [] Cardiovascular: Denies chest pain or edema. [] GI: Denies nausea, vomiting, bloody stools or diarrhea. [] : Denies dysuria, hematuria, or vaginal bleeding Musculoskeletal: Denies midline back pain or joint pain. [] Integument: Denies rash or diaphoresis Neurologic: Denies headache, focal weakness or sensory changes. [] Endocrine: Denies polyuria or polydipsia. [] Lymphatic: Denies swollen glands. [] Psychiatric: Denies depression or anxiety. [] Heart Score: C/O Chest Pain: No Risk Factors: Risk Factors: DM, Current or recent (<one month) smoker, HTN, HLP, family history of CAD, obesity. Risk Scores: Score 0 - 3: 2.5% MACE over next 6 weeks - Discharge Home Score 4 - 6: 20.3% MACE over next 6 weeks - Admit for Clinical Observation Score 7 - 10: 72.7% MACE over next 6 weeks - Early Invasive Strategies Current Medications: Current Medications Medications (Trade) Dose Ordered Sig/Nathen Start Time Stop Time Status Last Admin Dose Admin Sodium Chloride 1,000 ml @ 1,000 mls/hr 1X ONCE 05/22/21 02:15 05/22/21 03:14 DC 05/22/21 02:11 1,000 MLS/HR Allergies: Allergies: Allergies Coded Allergies Type Severity Reaction Last Updated Verified No Known Drug Allergies 03/05/17 No Physical Exam: PE: Constitutional: Well developed, well nourished, no acute distress-calm/no writhing/tolerating pain well, non-toxic appearance, HENT: Normocephalic, atraumatic, Eyes: EOMI, conjunctiva normal, no discharge. Neck: Normal range of motion, supple, Cardiovascular: S1/2 present, regular rhythm Lungs & Thorax: Speaking in full sentences, bilateral equal chest rise, no tachypnea or increased work of breathing Abdomen: soft, no tenderness, no Mittal sign, no McBurney's point tenderness, no rigidity or guarding, no peritonitis Skin: Warm, dry, no erythema, no rash. [] Back: No tenderness, right CVA tenderness. [] Extremities: No tenderness, no cyanosis, no lower extremity edema Neurologic: Alert and oriented X 3, normal motor function, normal sensory function, no focal deficits noted. [] Psychologic: Affect normal, judgement normal, mood normal. [] Current Patient Data: Labs: Laboratory Tests Test 05/22/21 01:36 05/22/21 01:47 05/22/21 02:00 Urine Collection Type Void Urine Color Yellow Urine Clarity Clear Urine pH 6.0 (<5.0-8.0) Urine Specific Art 1.020 (1.000-1.030) Urine Protein Negative mg/dL (NEG-TRACE) Urine Glucose (UA) Negative mg/dL (NEG) Urine Ketones (Stick) Negative mg/dL (NEG) Urine Blood Large (NEG) Urine Nitrite Negative (NEG) Urine Bilirubin Negative (NEG) Urine Urobilinogen Dipstick 0.2 mg/dL (0.2 mg/dL) Urine Leukocyte Esterase Negative (NEG) Urine RBC 20-40 /HPF (0-2) Urine WBC Rare /HPF (0-4) Urine Squamous Epithelial Cells Few /LPF Urine Bacteria 0 /HPF (0-FEW) Urine Mucus Mod /LPF POC Urine HCG, Qualitative Hcg negative (Negative) White Blood Count 11.9 x10^3/uL (4.0-11.0) H Red Blood Count 4.38 x10^6/uL (3.50-5.40) Hemoglobin 13.0 g/dL (12.0-15.5) Hematocrit 37.8 % (36.0-47.0) Mean Corpuscular Volume 86 fL (79-100) Mean Corpuscular Hemoglobin 30 pg (25-35) Mean Corpuscular Hemoglobin Concent 34 g/dL (31-37) Red Cell Distribution Width 13.4 % (11.5-14.5) Platelet Count 364 x10^3/uL (140-400) Neutrophils (%) (Auto) 46 % (31-73) Lymphocytes (%) (Auto) 41 % (24-48) Monocytes (%) (Auto) 9 % (0-9) Eosinophils (%) (Auto) 4 % (0-3) H Basophils (%) (Auto) 1 % (0-3) Neutrophils # (Auto) 5.5 x10^3/uL (1.8-7.7) Lymphocytes # (Auto) 4.9 x10^3/uL (1.0-4.8) H Monocytes # (Auto) 1.0 x10^3/uL (0.0-1.1) Eosinophils # (Auto) 0.5 x10^3/uL (0.0-0.7) Basophils # (Auto) 0.1 x10^3/uL (0.0-0.2) Sodium Level 140 mmol/L (136-145) Potassium Level 3.9 mmol/L (3.5-5.1) Chloride Level 104 mmol/L (98-107) Carbon Dioxide Level 28 mmol/L (21-32) Anion Gap 8 (6-14) Blood Urea Nitrogen 13 mg/dL (7-20) Creatinine 0.8 mg/dL (0.6-1.0) Estimated GFR (Cockcroft-Gault) 81.2 BUN/Creatinine Ratio 16 (6-20) Glucose Level 91 mg/dL (70-99) Calcium Level 8.9 mg/dL (8.5-10.1) Total Bilirubin 0.3 mg/dL (0.2-1.0) Aspartate Amino Transferase (AST) 17 U/L (15-37) Alanine Aminotransferase (ALT) 26 U/L (14-59) Alkaline Phosphatase 106 U/L (46-116) Total Protein 7.3 g/dL (6.4-8.2) Albumin 3.6 g/dL (3.4-5.0) Albumin/Globulin Ratio 1.0 (1.0-1.7) Laboratory Tests 05/22/21 02:00 Laboratory Tests 05/22/21 02:00 Vital Signs: Vital Signs Date Time Temp Pulse Resp B/P (MAP) Pulse Ox O2 Delivery O2 Flow Rate FiO2 05/22/21 01:47 98.0 60 13 131/75 (79) 99 Room Air 98.0 EKG: EKG: [] Radiology/Procedures: Radiology/Procedures: []IMAGING REPORT Signed PATIENT: DILEEP SULLIVAN ACCOUNT: [id number] : 1985 LOCATION: ER AGE: 35 SEX: F EXAM STATUS: REG ER ORD. PHYSICIAN: BIBI BROOKS DO REASON: right flank pain PROCEDURE: CT ABDOMEN PELVIS WO CONTRAST CT abdomen and pelvis without contrast: Reason for examination: Right flank pain. Helical images were obtained through the abdomen and pelvis with no intravenous or oral contrast administered. Reconstruction was performed in sagittal and coronal planes. Exposure: One or more of the following individualized dose reduction techniques were utilized for this examination: 1. Automated exposure control 2. Adjustment of the mA and/or kV according to patient size 3. Use of iterative reconstruction technique. The lung bases are clear. The heart size is normal with no pericardial effusion. No abnormality seen at the liver, spleen, adrenal glands or pancreas. The gallbladder is surgically absent. There are nonobstructing calculi present in the kidneys bilaterally. No hydronephrosis or obstructive uropathy is evident. No abnormality seen at the appendix. The colon shows no diverticulosis, diverticulitis or colitis. No abnormality seen at the stomach or duodenum. The small intestinal tract shows no abnormal dilatation, wall thickening or obstruction. No abnormality seen at the bladder or uterus. No gross ovarian/adnexal masses are seen. No free fluid or free air is seen in the abdomen or pelvis. No acute bony abnormalities are seen. IMPRESSION: Bilateral nonobstructing renal calculi. No hydronephrosis or obstructive uropathy evident. No other focal abnormality seen in the abdomen or pelvis. Electronically signed by: Kiel Madera MD (05/22/2021 3:31 AM) [facility] DICTATED and SIGNED BY: KIEL MADERA MD DATE: 05/22/21 [id number] 0 Course & Med Decision Making: Course & Med Decision Making Pertinent Labs and Imaging studies reviewed. (See chart for details) Concern for sudden onset right flank pain that woke patient up, on reevaluation patient states pain has almost completely subsided. Her menses was a week and a half ago. CT w/ bl nonobstructing kidney stones, urinalysis with large hematuria and 20-40 rbcs, suspect passed stone. Patient was educated on kidney stone management and specialty care. Will prescribe analgesia-educated to not mix with alcohol, drive or operate heavy machinery and that this medication causes addiction and constipation. Will discharge home with strict ED return precautions were given for worsening pain, fever, dehydration, flulike symptoms or intractable nausea or vomiting. Encouraged urgent outpatient follow-up with PMD and urology as needed for definitive management. Life-threatening processes were considered but are low suspicion at this time, given history, physical exam and ED workup. Pt was educated on all prescription medications and adverse effects. All patient's questions were answered and pt was stable at time of discharge. Life/limb-threatening differential includes but is not limited to, aortic dissection/aneurysm, cauda equina syndrome, transverse myelitis, spinal cord/epidural compression syndromes, discitis, spinal stenosis, epidural abscess or hematoma, osteomyelitis, disc herniation, surgical abdomen, stable or unstable fracture, renal/ureteral colic, sepsis, meningitis, musculoskeletal injury, traumatic injury, intraabdominal/retroperitoneal or pelvic bleeding. I have spoken with the patient and/or caregivers. I explained the patient's condition, diagnoses and treatment plan based on the information available to me at this time. I have answered the patient and/or caregiver's questions and addressed any concerns. The patient and/or caregivers have a good understanding of patient's diagnosis, condition and treatment plan as can be expected at this point. Vital signs have been stable. Patient's condition is stable and appropriate for discharge from the emergency department. Patient will pursue further outpatient evaluation with primary care physician or other designated or consulting physician as outlined in the discharge instructions. The patient and/or caregivers are agreeable to this plan of care and follow-up instructions have been explained in detail. The patient and/or caregivers have received these instructions in written form and have expressed an understanding of the discharge instructions. The patient and/or caregivers are aware that any significant change of condition or worsening of symptoms should prompt immediate return to this or the closest emergency department or call to [id number] Wong Disclaimer: Judith Disclaimer: This electronic medical record was generated, in whole or in part, using a voice recognition dictation system. Departure Departure Impression: Primary Impression: Acute right flank pain Additional Impressions: Bilateral nephrolithiasis Hematuria Disposition: HOME / SELF CARE / HOMELESS Condition: STABLE Referrals: ARYAN KELLER MD (PCP) Follow-up with your primary care physician for routine care OR FOLLOW UP WITH FAMILY MEDICINE: [address], [address] [place] [address] Patient Instructions: Diet for Kidney Stones, Kidney Stones Additional Instructions: FOLLOW UP WITH UROLOGY: FOR DEFINITIVE MANAGEMENT of kidney stones [facility] [address] [place] [address] [place] [address] [address] [place] [address] [place] [address] [place] [address] EMERGENCY DEPARTMENT GENERAL DISCHARGE INSTRUCTIONS Thank you for coming to [facility] Emergency Department (ED) to day and trusting us with you care. We trust that you had a positive experience in our Emergency Department. If you wish to speak to the department management, you may call the Director at [phone]. YOUR FOLLOW UP INSTRUCTIONS ARE FOLLOWS: 1. Do you have a private Doctor? If you do not have a private doctor, please ask for a resource list of physicians or clinics that may be able to assist you with follow up care. 2. The Emergency Physicain has interpreted your x-rays. The X-Ray specialist will also review them. If there is a change in the findings, you will be notified in 48 hours when at all possible. 3. A lab test or culture has been done, your results will be reviewed and you will be notified if you need a change in treatment. ADDITIONAL INSTRUCTIONS AND INFORMATION: 1. Your care today has been supervised by a physician who is specially trained in emergency care. Many problems require more than one evaluation for a complete diagnosis and treatment. We recommend that you schedule your follow up appointment as recommended to ensure complete treatment of you illness or injury. If you are unable to obtain follow up care and continue to have a problem, or if your condition worsens, we recommend that you return to the ED. 2. We are not able to safely determine your condition over the phone nor are we able to give sound medical advice over the phone. For these safety reasons, if you call for medical advice we will ask you to come to the ED for further evaluation. 3. If you have any questions regarding these discharge instructions please call the ED at [phone]. SAFETY INFORMATION: In the interest of safety, wellness, and injury prevention; we encourage you to wear your sealbelt, if you smoke; quite smoking, and we encourage family to use a protective helmet for bicycling and other sporting events that present an increased risk for head injury. IF YOUR SYMPTOMS WORSEN OR NEW SYMPTOMS DEVELOP, OR YOU HAVE CONCERNS ABOUT YOUR CONDITION; OR IF YOUR CONDITION WORSENS WHILE YOU ARE WAITING FOR YOUR FOLLOW UP APPOINT MENT; EITHER CONTACT YOUR PRIMARY CARE DOCTOR, THE PHYSICIAN WHOSE NAME AND NUMBER YOU WERE GIVEN, OR RETURN TO THE ED IMMEDIATELY. Scripts Hydrocodone Bit/Acetaminophen (HYDROCODONE-APAP 5-325 ) 1 Tab Tablet 1 TAB PO PRN Q6HRS PRN for PAIN for 4 Days, #16 TAB 0 Refills Prov: IBBI BROOKS DO 05/22/21 BIBI BROOKS DO May 22, 2021 03:42
[2021-05-22] MEDS ORDERED: KETOROLAC 15 MG/ML VIAL. IVP ONE (03:45)
[2021-05-22] MEDS ORDERED: HYDR-2761 PO (04:21)
[2021-05-22 04:38] VITALS: BP 123/74
== END 2021-05-22 05:04 | disposition home or self-care (01) ==
LOC: ER 01:26
DX: N20.0 Calculus of kidney (principal); R31.9 Hematuria, unspecified; K21.9 Gastro-esophageal reflux disease without esophagitis; Z90.49 Acquired absence of other specified parts of digestive tract
CPT/HCPCS: 36415; 74176; 80053; 81001; 81025; 85025; 96361; 96374; 99285; J1885; J7030